=== PATIENT | male | born 1935 | race Caucasian/White ===

== ENCOUNTER → 2019-04-10 11:32 | Outpatient (CLI) | payer MEDICARE, SELFPAY ==
--- NOTE | 2019-04-10 12:06 | XR_ITS ---
PROCEDURE: XR KNEE RT 3V CLINICAL INDICATION: RT KNEE PAIN COMPARISON: No exams were available for comparison FINDINGS: Prior total knee replacement. There are no previous exams available for comparison.. There is some cortical regularity involving the proximal tibia medially just distal to the distal aspect of the stem of the tibial prosthesis. While this could be a postsurgical finding, 1 cannot exclude the possibility of a fracture. Please correlate as the patient's area of pain and tenderness. Correlation with old studies would be helpful if they are available. There are none made available at this institution. IMPRESSION: Prior total knee replacement. Cortical regularity of the proximal tibia medially which could reflect postsurgical change or nondisplaced fracture. Dictated by: Dmitry Oliveira MD 04/10/2019 13:05 Electronically signed by Dmitry Oliveira MD in [facility] 04/10/2019 13:05
[2019-04-10 13:40] LABS: Prostate Specific Ag, Diagnost 0 ng/mL (0.0-4.0)
== END ==
PROVIDERS: Visit Provider Urology
DX: C61 Malignant neoplasm of prostate (principal); M25.561 Pain in right knee
CPT/HCPCS: 36415; 73562; 84153

== ENCOUNTER → 2019-07-08 15:06 | Outpatient (CLI) | payer MEDICARE, SELFPAY ==
--- NOTE | 2019-07-08 15:12 | CA_ITS ---
APPROVED REPORT Right Lower Extremity Venous Study for DVT. Epidemiology Intern: Maryanne De Santiago RVT Indications Lower Extremity Pain: Right Lower Extremity Edema: Right Risk Factors Cardiac Disease Vein Imaging CFV (R): compressive, spontaneous, phasic, augmentation FEM (R): compressive, spontaneous, phasic, augmentation POP (R): compressive, spontaneous, phasic, augmentation PTV (R): Compressible GSV (R): Compressible Peroneals (R):Compressible GAS (R): Compressible Findings Study suggests no evidence of DVT of the right lower extremity. Study suggests no evidence of SVT of the right lower extremity. Conclusion No evidence of DVT or superficial thrombophlebitis in the veins scanned of the right lower extremity. Critical Notification Physician Notified Date: 07/08/2019 Time: 15:45 Physician Name: Dewayne Mandujano Electronically signed by : Dmitry Oliveira MD 07/08/2019 18:22:27
== END ==
PROVIDERS: PCP Family Medicine; Visit Provider Nurse Practitioner
DX: M79.604 Pain in right leg (principal); R60.0 Localized edema
CPT/HCPCS: 93971

== ENCOUNTER → 2019-08-21 08:47 | Outpatient (CLI) | payer MEDICARE, SELFPAY ==
--- NOTE | 2019-08-21 08:54 | US_ITS ---
APPROVED REPORT Exam Type: Lower Extremity Segmental Pressures Pharmaceutical Scientist: Maryanne De Santiago RVT Indications Claudication: Bilaterally Rest Pain: Bilaterally Edema CAD Risk Factors Hypertension CAD Hyperlipidemia Cardiac Disease Diabetes Pressures/Indices Right Indices Left Indices Brachial 175.00 mmHg Brachial 185.00 mmHg Low Thigh 179.00 mmHg 0.97 Low Thigh 125.00 mmHg 0.68 Calf 122.00 mmHg 0.66 Calf 158.00 mmHg 0.85 Ankle(PT) 141.00 mmHg 0.76 Ankle(PT) 145.00 mmHg 0.78 Ankle(DP) 125.00 mmHg 0.68 Ankle(DP) 97.00 mmHg 0.52 Digit 73.00 mmHg 0.39 Digit 82.00 mmHg 0.44 Findings RT JOJO:0.76 LT JOJO:0.78 RT TBI:0.39 LT TBI:0.44 NORMAL PULSES BILATERAL DECREASED WAVEFORMS AT CALF AND ANKLE LEVELS BILATERAL Conclusion RT JOJO:0.76 LT JOJO:0.78 RT TBI:0.39 LT TBI:0.44 NORMAL PULSES BILATERAL DECREASED WAVEFORMS AT CALF AND ANKLE LEVELS BILATERAL Moderate arterial disease bilateral Electronically signed by : Dmitry Oliveira MD 08/21/2019 17:35:51
--- NOTE | 2019-08-21 09:30 | XR_ITS ---
PROCEDURE: XR LUMBAR SPINE MIN 4V CLINICAL INDICATION: LUMBAGO Low back pain COMPARISON: No exams were available for comparison FINDINGS: There is good alignment. There is multilevel degenerative disc disease T12-S1. Prominent bridging osteophytes are present from T12-S1 consistent with DISH. There is mild lumbar curvature convex right. No acute fracture or dislocation. No lytic changes. Facet arthritic changes are present at L4-L5 and S1. There is generalized vascular calcification and there are multiple surgical clips over the lower pelvic region. Degenerative changes are present in the left hip. IMPRESSION: Extensive lumbar spondylosis with multilevel degenerative disc disease and DISH along with facet arthritic changes Dictated by: Dmitry Oliveira MD 08/21/2019 13:36 Electronically signed by Dmitry Oliveira MD in [facility] 08/21/2019 13:36
== END ==
PROVIDERS: PCP Family Medicine; Visit Provider Family Medicine
DX: I70.213 Atherosclerosis of native arteries of extremities with intermittent claudication, bilateral legs (principal); M54.42 Lumbago with sciatica, left side; M54.41 Lumbago with sciatica, right side
CPT/HCPCS: 72110; 93923

== ENCOUNTER 2019-08-28 12:44 | Emergency (ER) | payer MEDICARE, SELFPAY ==
[2019-08-28 12:56] VITALS: BP 116/83; PULSE 88; RESP 18; TEMP 36.6; O2SAT 92; BMI 33.6
--- NOTE | 2019-08-28 13:01 | CT_ITS ---
PROCEDURE: CT HEAD/BRAIN WO CON CLINICAL INDICATION: fall Posttraumatic pain, fall with injury and pain, hematoma/contusion of the left periorbital region COMPARISON: No exams were available for comparison TECHNIQUE: Axial images obtained. All CT scans at the facility use one or more dose reduction, viz: automated exposure control, ma/kV adjustment per patient size (including targeted exams where dose is matched to indication, i.e. head), or iterative reconstruction technique. FINDINGS: No midline shift, mass effect, intracranial hemorrhage, hydrocephalus, or extra-axial fluid collection is evident. There is generalized atrophy with hypoattenuation of the periventricular white matter consistent with microangiopathic changes. The calvarium has an unremarkable appearance. No mastoid effusion. There is moderate soft tissue swelling in the left periorbital region consistent with hematoma. IMPRESSION: 1. No acute intracranial findings. 2. Left periorbital hematoma Dictated by: Dmitry Oliveira MD 08/28/2019 14:40 Electronically signed by Dmitry Oliveira MD in [facility] 08/28/2019 14:40
--- NOTE | 2019-08-28 13:01 | CT_ITS ---
PROCEDURE: CT CERVICAL SPINE WO CON CLINICAL INDICATION: fall Neck pain following injury, fall with injury and pain COMPARISON: No exams were available for comparison TECHNIQUE: Axial images obtained with sagittal and coronal reformats. All CT scans at the facility use one or more dose reduction, viz: automated exposure control, ma/kV adjustment per patient size (including targeted exams where dose is matched to indication, i.e. head), or iterative reconstruction technique. Axial spiral CT scanning performed of the cervical spine beginning at the base of the skull and continuing to the upper T-spine. 3-D multiplanar reconstruction with 3-D manipulation of volumetric data set in image rendering was completed by the radiologist and/or technologist with the supervision of the radiologist on independent workstation. FINDINGS: There is normal alignment. No acute fracture or dislocation is evident. There is multilevel cervical spondylosis with bulging degenerative disc disease with endplate, facet, and uncovertebral hypertrophy with bulging disc. This results in: Left foraminal narrowing at C2-C3 with degenerative disc disease, degenerative disc disease C3-C4 with small central disc osteophyte complex, degenerative disc disease C4-C5 with bilateral foraminal narrowing, degenerative disc disease C5-C6 with bilateral foraminal and lateral recess narrowing, degenerative disc disease C6-C7. The lung apices are clear. There has been a prior median sternotomy. IMPRESSION: 1. No acute fracture. 2. Multilevel cervical spondylosis Dictated by: Dmitry Oliveira MD 08/28/2019 14:43 Electronically signed by Dmitry Oliveira MD in [facility] 08/28/2019 14:43
--- NOTE | 2019-08-28 13:01 | CT_ITS ---
PROCEDURE: CT FACIAL BONES WO CON CLINICAL HISTORY: fall Fall with injury and pain, posttraumatic pain with left periorbital contusion/hematoma COMPARISON: No exams were available for comparison TECHNIQUE: Axial images obtained with sagittal and coronal reformats. All CT scans at the facility use one or more dose reduction, viz: automated exposure control, ma/kV adjustment per patient size (including targeted exams where dose is matched to indication, i.e. head), or iterative reconstruction technique. FINDINGS: No obvious fracture or dislocation. There is prominent periorbital soft tissue swelling on the left. No postseptal edema. The globe itself appears unremarkable. Along the anterior aspect of maxillary region within the subcutaneous soft tissues there is a rounded 1.7 cm area of increased density consistent with a hematoma. No sinus air-fluid level. IMPRESSION: Left periorbital and maxillary hematomas. No acute fracture Dictated by: Dmitry Oliveira MD 08/28/2019 14:54 Electronically signed by Dmitry Oliveira MD in [facility] 08/28/2019 14:54
--- NOTE | 2019-08-28 13:03 | PC.NURSE ---
caregiver at bedside
[2019-08-28 13:36] VITALS: BP 136/59; PULSE 81; O2SAT 92
[2019-08-28 14:30] VITALS: BP 124/60; PULSE 67; RESP 20; O2SAT 98
--- NOTE | 2019-08-28 15:17 | HMH.EDFALL ---
ED Disposition Clinical Impression: Superficial contusion of neck Disposition: Home, Self-Care Condition on Discharge: Good Instructions: How to Prevent Falls Referrals: Vern Lloyd MD [Primary Care Provider] - - Critical Care Critical Care Time: No Attestation: On 08/28/19, the high probability of a clinically significant, sudden or life threatening deterioration of the following system(s) required my full and direct attention, intervention and personal management. The time I documented below is in addition to time spent performing reported procedures but includes the following listed in this critical care notation. Medical Decision Making - Medical Records Medical records reviewed: Yes: I reviewed the patient's medical records. - Nathaniel Inquiry Pt receiving controlled substance: No Vital Signs: 08/28/19 12:56 08/28/19 13:36 08/28/19 14:30 Temperature 98 F Temperature Source Oral Pulse Rate [Left Radial] 88 81 67 Respiratory Rate 18 20 Blood Pressure [Right Arm] 116/83 136/59 L 124/60 Blood Pressure Mean [Right Arm] 94 84 81 Blood Pressure Source [Right Arm] Automatic Cuff Automatic Cuff Blood Pressure Position [Right Arm] Sitting Sitting Sitting 02 Sat by Pulse Oximetry 92 L 92 L 98 Oxygen Delivery Method Room Air Room Air Room Air - Lab Data Lab results reviewed: Yes: I reviewed the patient's lab results. - CT Data CT Scan: Head, C-Spine, Other (Facial bones) Time Received: 15:20 Preliminary Findings: Normal/NAD Fall HPI - General Chief Complaint: Fall Stated Complaint: AO [id number] Fell on face Time Seen by Provider: 08/28/19 14:30 Mode of Arrival: Ambulatory Source of Information: Patient Limitations: No Limitations Description of Symptoms (Recalled from ER Triage Doc. by RN): to ed per pvt car pt states fell out of bed lastnight hitting lt side of face. laceration, bruising, swelling noted to lt of face. denies any loc. pt denies any other c/o at present - History of Present Illness HPI Narrative: 84-year-old male presents to the ED after a fall. Apparently patient was lying in bed and threw one leg over the side of the bed because he was hot and when he did that he ended up rolling off the bed and hit his head on the floor. Patient does have a hematoma over the left eye and a small abrasion over the left cheek. Patient denies any loss of consciousness patient denies any headache patient denies any loss of balance. Patient also denies any recent fever shakes or chills patient also denies any sore throat or headache patient also denies any fatigue or malaise. - Related Data Home Medications Medication Instructions Recorded Confirmed allopurinol 100 mg tablet 100 mg PO DAILY tab 04/10/19 06/11/19 atorvastatin 20 mg tablet 20 mg PO DAILY tab 04/10/19 06/11/19 celecoxib 200 mg capsule 200 mg PO DAILY cap 04/10/19 06/11/19 duloxetine 60 mg capsule,delayed 60 mg PO DAILY cap 04/10/19 06/11/19 release furosemide 40 mg tablet 40 mg PO DAILY tab 04/10/19 06/11/19 insulin glargine 100 unit/mL (3 1 unit SQ DAILY 04/10/19 06/11/19 mL) subcutaneous pen liraglutide 0.6 mg/0.1 mL (18 mg/3 1 unit SQ DAILY 04/10/19 06/11/19 mL) subcutaneous pen injector lisinopril 20 mg tablet 20 mg PO DAILY tab 04/10/19 06/11/19 meloxicam 15 mg tablet 15 mg PO DAILY 04/10/19 06/11/19 metoprolol tartrate 25 mg tablet 25 mg PO DAILY tab 04/10/19 06/11/19 prednisolone acetate 1 % eye 1 unit OPHTHALMIC DAILY 04/10/19 06/11/19 drops,suspension Allergies Allergy/AdvReac Type Severity Reaction Status Date / Time No Known Allergies Allergy Verified 06/11/19 09:55 [facility] History - Hepatitis A Screen Drug use history?: No High risk sexual behaviors?: No History of sexually transmitted infection?: No Currently employed?: No Childcare worker?: No Do you have indoor plumbing?: Yes Do you have electricity?: Yes Attestation statement:: This patient has been screened for Hepa
[2019-08-28 15:43] VITALS: BP 123/85; PULSE 85; RESP 20; TEMP 36.8; O2SAT 98
== END 2019-08-28 15:47 | disposition home or self-care (01) ==
PROVIDERS: Emergency Provider Family Medicine; PCP Family Medicine
DX: S10.93XA Contusion of unspecified part of neck, initial encounter (principal); W06.XXXA Fall from bed, initial encounter; Y92.013 Bedroom of single-family (private) house as the place of occurrence of the external cause; I10 Essential (primary) hypertension; E10.9 Type 1 diabetes mellitus without complications; Z79.899 Other long term (current) drug therapy
CPT/HCPCS: 70450; 70486; 72125; 99282

== ENCOUNTER → 2019-09-03 09:19 | Outpatient (CLI) | payer MEDICARE, SELFPAY ==
[2019-09-03 09:53] LABS: Blood Urea Nitrogen 60 mg/dl (9-20); Estimated Glomerular Filt Rate 41 ml/min (>60); GFR (African American) 50 ML/MIN (>60)
--- NOTE | 2019-09-03 11:27 | CT_ITS ---
Procedure: CT ANGIO ABDOMEN/FEMORAL CLINICAL HISTORY: CLAUDICATION Bilateral leg pain right greater than left, bilateral claudication COMPARISON: US ARTERIAL LOWER EXT REST from 08/21/2019 TECHNIQUE: IV Contrast: 100ml Optiray 350 Axial images obtained with sagittal and coronal reformats. All CT scans at the facility use one or more dose reduction, viz: automated exposure control, ma/kV adjustment per patient size (including targeted exams where dose is matched to indication, i.e. head), or iterative reconstruction technique. FINDINGS: Atheromatous changes involve the abdominal aorta with tortuosity in no evidence of aneurysm. There are 2 small right renal arteries each showing a moderate to high-grade stenosis at its ostium of suspected greater than 50 percent. There is a single left renal artery with high-grade stenosis proximally of greater than 50 percent with fibrocalcific plaque. No significant stenosis of the celiac or superior mesenteric artery. The inferior mesenteric artery is patent with high-grade stenosis at its ostium of greater than 50 percent. There is stenosis at the ostium of the right common iliac artery of approximately 50 percent with tortuosity of the iliac vessels. The external iliacs have an unremarkable appearance. Right lower extremity runoff: Scattered atheromatous plaque. There is severe stenosis of the mid to distal right SFA of 75 percent short-segment. This is 10 cm above the knee. Atheromatous plaque is present distal to this region. Artifact is present from bilateral knee replacement obscuring vessels at the popliteal region. Scattered atheromatous plaque with narrowing of approximately 40 is present at the distal popliteal on the right. Plaque is present at the tibial peroneal trunk. There is occlusion of the right tibial peroneal trunk and of the posterior tibial artery with only minimal reconstitution of the distal posterior tib. Delayed images were obtained showing reconstitution of the posterior tib, anterior tib and peroneal artery Left lower extremity runoff: 40 percent stenosis noted of the mid left SFA. There is occlusion of the distal 1/3 left SFA with faint reconstitution of the popliteal artery. The peroneal artery is patent below the knee. There is occlusion of the proximal posterior tibial and anterior tibial artery. Delayed images show reconstitution the anterior tib, posterior tip, and peroneal arteries at the ankle. Non angiographic: The cholelithiasis. Bilateral total knee replacement. Degenerative changes of the hips and spine. IMPRESSION: 1. Severe stenosis of the mid to distal right SFA of 75 percent. 2. Occlusion of the right tibial peroneal trunk and the posterior tibial artery proximally with reconstitution distally on the delayed images. 3. Occlusion of the distal 1/3 of the left SFA with faint reconstitution of the popliteal artery 4. Occluded left anterior tibial and posterior tibial arteries proximally with patent peroneal artery below the knee. There is reconstitution of the anterior tib and posterior tib distally on the delayed images. 5. Cholelithiasis Dictated by: Dmitry Oliveira MD 09/04/2019 13:32 Electronically signed by Dmitry Oliveira MD in [facility] 09/04/2019 13:32
== END ==
PROVIDERS: PCP Family Medicine; Visit Provider Family Medicine
DX: I70.213 Atherosclerosis of native arteries of extremities with intermittent claudication, bilateral legs (principal)
CPT/HCPCS: 36415; 75635; 82565; 84520; Q9967

== ENCOUNTER 2019-09-25 07:44 | Day surgery (SDC) | payer MEDICARE, SELFPAY ==
[2019-09-25] VITALS (12 sets, daily range): BP systolic 112–163; BP diastolic 59–92; PULSE 70–104; RESP 15–20; TEMP 36.8; O2SAT 94–99; BMI 33.6
--- NOTE | 2019-09-25 07:52 | CA_ITS ---
APPROVED REPORT Surgical Instrument Maker: DIEGO Laterality: Bilateral Study Quality: Technically Limited, Due to uncooperative patient. Indications: carotid bruits Risk Factors PAD Doppler Spectral Velocity Analysis ECA (R) 132.00/19.20 cm/s ECA (L) 186.60/13.90 cm/s Nereida (R) 133.20/35.90 cm/s Nereida (L) 269.00/61.50 cm/s pICA (R) 143.50/32.00 cm/s pICA (L) 284.40/74.30 cm/s dCCA (R) 91.70/18.00 cm/s dCCA (L) 64.30/18.00 cm/s pCCA (R) 75.90/14.40 cm/s pCCA (L) 77.80/12.70 cm/s Vert (R) 83.30/23.10 cm/s Vert (L) 75.20/20.10 cm/s ICA/CCA 1.57 ICA/CCA 4.40 Findings Duplex evaluation demonstrates stenosis of the right proximal internal carotid artery in the range of 50-69% more toward lower end with PSV =140 cm/sec, EDV <100 cm/sec, and IC/CC Ratio <4.0. Duplex evaluation demonstrates stenosis of the leftproximal internal carotid artery in the range of 70-99% with PSV =140 cm/sec, EDV =100 cm/sec, or IC/CC Ratio =4.0. Conclusion Duplex evaluation demonstrates stenosis of the right proximal internal carotid artery in the range of 50-69% more toward lower end with PSV =140 cm/sec, EDV <100 cm/sec, and IC/CC Ratio <4.0. Duplex evaluation demonstrates stenosis of the leftproximal internal carotid artery in the range of 70-99% with PSV =140 cm/sec, EDV =100 cm/sec, or IC/CC Ratio =4.0. Electronically signed by : Dmitry Oliveira MD 09/25/2019 16:25:57
--- NOTE | 2019-09-25 07:52 | CA_ITS ---
APPROVED REPORT EXAM: Comprehensive 2D, Doppler, and color-flow Echocardiogram Sweep Molder: Marta Fulton RT(R) Ht: 5 ft 3 in Wt: 190lbs BSA: 1.89 BP: 133/98 mmHg Indications: SOB, DOTY, Hx of CABG, AF, CAD 2D Dimensions LVOT 1.91 cm (M/F) 1.5-2.5 M-Mode Dimensions RVDd 3.07 cm (0.9-2.6) LVDd 4.06 cm (3.5-5.7) LVDs 3.79 cm (3.5-5.7) IVSd 1.25 cm (0.6-1.1) PWd 0.53 cm (0.6-1.1) EF (Teich) 15.00% FS 6.70% EDV (Teich) 72.50 mL ESV (Teich) 61.60 mL LV Diastology E/A Ratio 12.59 Mitral Valve MV A Velocity 29.00 (40-130 cm/s) Left Ventricle 1. Left atrium is moderately enlarged, left ventricle is normal size, mild concentric left ventricular hypertrophy, visually estimated ejection fraction 45%, there is marked hypokinesis involving the inferior basal and posterolateral wall. Endocardial surfaces are poorly visualized. Diastolic parameters are inconclusive. Right Ventricle Right atrium and right ventricle are mildly enlarged with normal contractility. Aortic Valve Aortic valve is thickened and calcified leaflet continue to display mobility. There is no aortic stenosis, there is mild aortic insufficiency. Mitral Valve Mitral valve leaflets are minimally thickened, there is no mitral stenosis, there is moderate mitral regurgitation. Tricuspid Valve Tricuspid valve is grossly normal, there is mild tricuspid regurgitation, tricuspid regurgitation jet velocity is inadequate for calculation of the right ventricular systolic pressure. Pulmonic Valve Pulmonic valve is poorly visualized. Great Vessels Aortic root is normal size. Pericardium No significant pericardial effusion noted. Conclusion 1. Biatrial enlargement, normal left ventricular size, mild concentric left ventricular hypertrophy, visually estimated ejection fraction approximately 45% with segmental wall motion abnormality described above, diastolic parameters are inconclusive. 2. Mildly enlarged right ventricle with normal contractility. 3. Thickened and calcified aortic valve without Doppler evidence of aortic stenosis, there is mild aortic insufficiency. 4. Mild mitral and tricuspid regurgitation. 5. No significant pericardial effusion noted. Electronically signed by : Jim Jaquez, 09/26/2019 11:37:45
[2019-09-25 09:24] LABS: Basophils # 0.2 K/mm3 (0-0.2); Eosinophils # 0.5 K/mm3 (0.0-0.4); Eosinophils % 4.9 % (0.1-12.0); Hematocrit 36.5 % (42.0-52.0); Hemoglobin 11.9 g/dL (14.1-18.0); Lymphocytes # 2.2 K/mm3 (0.7-4.5); Lymphocytes % 21.7 % (10-50); Mean Corpuscular HGB Conc 32.5 g/dL (31.8-35.4); Mean Corpuscular Hemoglobin 30.2 pg (27.0-31.2); Mean Corpuscular Volume 93.1 fl (80-94); Mean Platelet Volume 9.2 fl (7.4-10.4); Monocytes # 0.7 K/mm3 (0.1-1.0); Neutrophils # 6.4 K/mm3 (1.8-7.8); Neutrophils % 64.4 % (37.0-80.0); Platelet Count 178 K/mm3 (142-424); Red Blood Count 3.92 M/mm3 (4.60-6.20); Red Cell Distribution Width 15.8 % (11.5-17.5)
[2019-09-25 10:07] LABS: Anion Gap 12.7 mEq/L (5-15); Blood Urea Nitrogen 72 mg/dl (9-20); Calcium 9.2 mg/dl (8.4-10.2); Carbon Dioxide 28 mmol/L (22.0-30.0); Chloride 103 mmol/L (98-107); Creatinine Clearance Estimated 30 mL/min (50-200); Estimated Glomerular Filt Rate 30 ml/min (>60); GFR (African American) 37 ML/MIN (>60); Glucose 205 mg/dl (74-100); Potassium 5.7 mmoL/L (3.5-5.1); Sodium 138 mmol/L (136-145)
--- NOTE | 2019-09-25 11:15 | IR_ITS ---
APPROVED REPORT Patient Location: Outpatient PROCEDURES Left femoral arterial access Catheter placement in the right common femoral artery Right common femoral artery angiogram Right superficial femoral artery angiogram Right profunda femoris artery angiogram Right popliteal artery angiogram Stent deployment in the right popliteal artery INDICATION [place] class III claudication, Peripheral artery disease, Atherosclerosis involving the right popliteal artery Informed consent was obtained prior to the procedure. COMPLICATIONS NONE Estimated Blood Loss: LESS THAN 10 ML TECHNIQUE 1% lidocaine used to anesthetize the left femoral groin. The left femoral artery was accessed via the Seldinger technique. Using fluoroscopic guidance the JR4 catheter was advanced from the aorta into the right common iliac artery and then advanced into the right common femoral artery. Angiography was performed. Because of patient's renal failure a stepwise manual injection was made down to the popliteal level. Following this therapeutic heparin was administered and a 5 Kittitian sheath was exchanged for a 7 Kitt[place] sheath. An advantage wire was placed distally and an 8 mm x 20 mm self-expanding EV 3 stent was deployed in the popliteal artery. A 7 mm x 20 mm balloon was then deployed at 8 [place] to post dilate. Excellent angiographic results were obtained. At the end of the procedure the apparatus was removed the groin was reprepped gloves were changed sheath was removed good hemostasis was achieved using Perclose device patient was transferred to the postop holding her stable condition ANGIOGRAPHIC RESULTS The right common iliac artery has a proximal 40 to 50% stenosis. The right internal and external iliac arteries are basically normal The right common femoral artery is normal as is the right profunda femoris artery The right superficial femoral artery has mild 10% plaque in its proximal segment however the right at Buddy's canal at the junction between the SFA and popliteal artery there is a mostly eccentric 80% stenosis. The vessel was not identified distal to the suprapatellar region IMPRESSION Focal severe stenosis in the right popliteal artery Successful stenting of the right popliteal artery severe disease reduced to 0% with one bare-metal self-expanding stent PLAN 1. Continue Xarelto for atrial fibrillation and combined with aspirin 81 mg daily 2. Reevaluate patient in 2 weeks to determine if the right leg claudication is improved. If patient has experienced significant benefit in the right leg I would then consider performing selective angiography of the left leg. Because of patient's severe renal failure it was not clinically appropriate to proceed with multiple angiograms today. 3. Risk factor modification 4. LDL less than 55 Electronically signed by : Benjamin De La Vega, 09/25/2019 14:10:32
--- NOTE | 2019-09-25 13:52 | SUR.PHASEII ---
NO ANTIPLATLET AT THIS TIME PER MD
[2019-09-25 15:09] LABS: CATHL Activated Clotting Time 234 SEC (74-125)
[2019-09-25 15:13] LABS: POC Glucose,Bedside 208 (70-110)
--- NOTE | 2019-11-29 08:55 | HMH.PHACLD ---
Jon Castrejon has received discharge medication counseling on the following medications: NEW MEDICATION: ASPIRIN CONTINUE MEDICATION: LIPITOR PATIENT RECEIVED A PERIPHERAL STENT, BETA-EMELYN AND JESSICA/ARB NOT INDICATED. DR. KOHLI DOES NOT WANT TO INITIATE AN ANTI-PLATELET AT THIS TIME. DOCUMENTED TO CONTINUE XARELTO AND AND ASPIRIN.
== END 2019-09-25 15:29 | disposition home or self-care (01) ==
PROVIDERS: PCP Family Medicine; Visit Provider Internal Medicine
DX: I70.223 Atherosclerosis of native arteries of extremities with rest pain, bilateral legs (principal); E11.51 Type 2 diabetes mellitus with diabetic peripheral angiopathy without gangrene; E78.5 Hyperlipidemia, unspecified; I10 Essential (primary) hypertension; I25.10 Atherosclerotic heart disease of native coronary artery without angina pectoris; I48.91 Unspecified atrial fibrillation; I70.1 Atherosclerosis of renal artery; M10.9 Gout, unspecified; R94.31 Abnormal electrocardiogram [ECG] [EKG]; Z79.4 Long term (current) use of insulin; Z85.46 Personal history of malignant neoplasm of prostate; Z95.1 Presence of aortocoronary bypass graft; Z95.5 Presence of coronary angioplasty implant and graft; R09.89 Other specified symptoms and signs involving the circulatory and respiratory systems
CPT/HCPCS: 37226; 80048; 82962; 85025; 85347; 93306; 93880; 99152; 99153; C1725; C1760; C1769; C1876; C1894; J1644; Q9966

== ENCOUNTER 2019-10-17 09:16 | Day surgery (SDC) | payer MEDICARE, SELFPAY ==
[2019-10-17] VITALS (18 sets, daily range): BP systolic 111–159; BP diastolic 48–89; PULSE 65–94; RESP 15–20; TEMP 36.4; O2SAT 72–100; BMI 34.2
--- NOTE | 2019-10-17 09:00 | IR_ITS ---
APPROVED REPORT Patient Location: Outpatient Lurer: ANNELIESE Klein RT (R) PROCEDURES 1. Catheter placement in the right vertebral artery 2. Right vertebral artery angiogram 3. Catheter placement in the right common carotid artery 4. Right internal carotid artery angiogram 5. Right internal carotid artery intracerebral angiogram 6. Catheter placement in the left common carotid artery 7. Left internal carotid artery angiogram 8. Left internal carotid artery intracerebral angiogram 9. Catheter placement in left subclavian artery 10. Left vertebral artery angiogram INDICATION Preoperative evaluation for carotid endarterectomy, Carotid artery stenosis Informed consent was obtained prior to the procedure. COMPLICATIONS None Estimated Blood Loss: less than 10 ml TECHNIQUE One percent lidocaine was used to anesthetize the right groin. The right femoral artery was accessed via the Seldinger technique. A 4-Luxembourger sheath was placed in the right femoral artery. The JR-4 catheter was used to cannulate the above arteries and perform selective and indirect angiography. Due to iliofemoral tortuosity the 4 Luxembourger sheath was exchanged for a 45 cm 5 Luxembourger sheath and a 5 Luxembourger JR4 was used to cannulate the left subclavian artery and specifically the left vertebral artery as well as the left carotid artery. At the end of the procedure the apparatus was removed the patient was transferred to the postop holding in stable addition for sheath removal ANGIOGRAPHIC RESULTS The right common carotid artery is widely patent and gives rise to the right internal carotid artery which has minimal less than 50% proximal stenosis. 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 It is reasonable for patient to be evaluated for surgical revascularization and carotid endarterectomy. Whether to proceed with carotid endarterectomy will be decided by the patient and the performing/consulting surgeon 2. Referred to Dr. Cortés at [facility] 3. Continue with aspirin 81 mg daily combined with Xarelto 2.5 p.o. twice daily 4. LDL less than 55 Electronically signed by : Benjamin De La Vega, 10/17/2019 11:37:00
[2019-10-17 10:18] LABS: Basophils # 0.1 K/mm3 (0-0.2); Basophils % 0.6 % (0.1-2.0); Eosinophils # 0.9 K/mm3 (0.0-0.4); Eosinophils % 7.9 % (0.1-12.0); Hematocrit 37.2 % (42.0-52.0); Hemoglobin 11.7 g/dL (14.1-18.0); Lymphocytes # 2.2 K/mm3 (0.7-4.5); Lymphocytes % 19.8 % (10-50); Mean Corpuscular HGB Conc 31.4 g/dL (31.8-35.4); Mean Corpuscular Hemoglobin 30.5 pg (27.0-31.2); Mean Corpuscular Volume 97.2 fl (80-94); Mean Platelet Volume 8.9 fl (7.4-10.4); Monocytes # 0.7 K/mm3 (0.1-1.0); Monocytes % 6.3 % (1.7-9.3); Neutrophils # 7.1 K/mm3 (1.8-7.8); Neutrophils % 65.3 % (37.0-80.0); Platelet Count 186 K/mm3 (142-424); Red Blood Count 3.82 M/mm3 (4.60-6.20); Red Cell Distribution Width 17.4 % (11.5-17.5); White Blood Count 10.9 K/mm3 (4.8-10.8)
[2019-10-17 10:28] LABS: Chloride 104 mmol/L (98-107); Potassium 4.7 mmoL/L (3.5-5.1); Sodium 142 mmol/L (136-145)
[2019-10-17 10:31] LABS: Anion Gap 11.7 mEq/L (5-15); Blood Urea Nitrogen 73 mg/dl (9-20); Calcium 9.1 mg/dl (8.4-10.2); Carbon Dioxide 31 mmol/L (22.0-30.0); Creatinine Clearance Estimated 32 mL/min (50-200); Estimated Glomerular Filt Rate 30 ml/min (>60); GFR (African American) 37 ML/MIN (>60); Glucose 138 mg/dl (74-100)
== END 2019-10-17 15:13 | disposition home or self-care (01) ==
LOC: CATHLAB 09:18
PROVIDERS: PCP Family Medicine; Visit Provider Internal Medicine
DX: E11.69 Type 2 diabetes mellitus with other specified complication (principal); E78.5 Hyperlipidemia, unspecified; I25.10 Atherosclerotic heart disease of native coronary artery without angina pectoris; I42.9 Cardiomyopathy, unspecified; I48.91 Unspecified atrial fibrillation; I65.23 Occlusion and stenosis of bilateral carotid arteries; I70.1 Atherosclerosis of renal artery; M10.9 Gout, unspecified; N18.3 Chronic kidney disease, stage 3 (moderate); I70.223 Atherosclerosis of native arteries of extremities with rest pain, bilateral legs; E11.22 Type 2 diabetes mellitus with diabetic chronic kidney disease; I12.9 Hypertensive chronic kidney disease with stage 1 through stage 4 chronic kidney disease, or unspecified chronic kidney disease; Z79.4 Long term (current) use of insulin; R94.31 Abnormal electrocardiogram [ECG] [EKG]; Z95.1 Presence of aortocoronary bypass graft; Z95.5 Presence of coronary angioplasty implant and graft
CPT/HCPCS: 36224; 36228; 80048; 85025; 99152; 99153; C1725; C1769; J1644; Q9967

== ENCOUNTER 2019-12-21 14:47 | Emergency (ER) | payer MEDICARE, SELFPAY ==
[2019-12-21 15:03] VITALS: BP 129/77; PULSE 73; RESP 20; TEMP 36.5; O2SAT 97; BMI 30.1
--- NOTE | 2019-12-21 16:05 | HMH.EDUTC ---
[facility] [place] Disposition Clinical Impression: Chronic renal failure, stage 3 (moderate) UTI (urinary tract infection) Qualifiers: Urinary tract infection type: site unspecified Hematuria presence: without hematuria Qualified Code(s): N39.0 - Urinary tract infection, site not specified Disposition: Home, Self-Care Condition on Discharge: Good Instructions: Urinary Tract Infection Additional Instructions: Follow up with your primary care doctor very closely (preferably on this coming Monday). Take the medication as directed. I adjusted the dose for your history of the stage 3 renal failure. Drink plenty of fluids. GO TOT ER FOR ANY WORSENING SIGNS OR SYMPTOMS, ESPECIALLY ANY CHILLING, FEVER, OR WORSENING URINARY SYMPTOMS Prescriptions: Ciprofloxacin HCl [Cipro 250mg Tab] 250 mg PO BID 10 Days #20 tab Transmission Status: Received by [email or web address] #[id number] Referrals: Vern Lloyd MD [Primary Care Provider] - Time of Disposition: 16:23 Medical Decision Making - Medical Records Medical records reviewed: No: I reviewed the patient's medical records. - Nathaniel Inquiry Pt receiving controlled substance: No Vital Signs: 12/21/19 15:03 12/21/19 16:07 Temperature 97.7 F 97.7 F Temperature Source Oral Pulse Rate 73 Pulse Rate [Right Brachial] 73 Respiratory Rate 20 20 Blood Pressure 129/77 Blood Pressure [Right Arm] 129/77 Blood Pressure Mean [Right Arm] 94 Blood Pressure Source [Right Arm] Automatic Cuff Blood Pressure Position [Right Arm] Sitting 02 Sat by Pulse Oximetry 97 Oxygen Delivery Method Room Air - Lab Data Lab results reviewed: Yes: I reviewed the patient's lab results. Orders (Tests/Meds): ED MEDICATIONS Discontinued Medications Generic Name Dose Route Start Last Admin Trade Name Freq PRN Reason Stop Dose Admin Ceftriaxone Sodium 1 gm 12/21/19 15:42 12/21/19 15:55 Rocephin 1gm Vial IM 12/21/19 15:43 1 gm ONCE ONE Administration Protocol Lidocaine HCl 0 ml 12/21/19 15:42 12/21/19 15:55 Lidocaine 1% 10ml Mdv IM 12/21/19 15:43 2.1 ml ONCE ONE Administration Medical Decision Narrative: He could not give us a urine specimen due to him being incontinent. I did not feel comfortable catherizing him due to his history of prostate issues and prostate removal. So, I elected to start him on antibiotics to treat the possible uti and the have him follow up closely with his pcp. [facility] [place] HPI - General Stated complaint: Hurts to urinate Time Seen by Provider: 12/21/19 15:10 Mode of Arrival: Ambulatory Source of Information: Patient Limitations: No Limitations Description of Symptoms (Recalled from Triage Doc. by RN): PATIENT C/O BURNING WITH URINATION. DENIES ANY OTHER SYMPTOMS HEENT Symptoms (Recalled from RN notes): No Resp Symptoms (Recalled from RN notes): No Skin Symptoms (Recalled from RN notes): No MS Symptoms (Recalled from RN notes): No Functional Status (Recalled from RN notes): WNL - History of Present Illness Provider Complaint: He states that over the past 3 days, he has began to burn when he urinates and have some mild low back pain. He is incontinent of urine due to a history of prostate cancer and prostate removal in the past. He wears adult diapers. - Related Data Home Medications Medication Instructions Recorded Confirmed allopurinol 100 mg tablet 100 mg PO DAILY tab 04/10/19 10/21/19 atorvastatin 20 mg tablet 20 mg PO DAILY tab 04/10/19 10/21/19 celecoxib 200 mg capsule 200 mg PO DAILY cap 04/10/19 10/21/19 duloxetine 60 mg capsule,delayed 60 mg PO DAILY cap 04/10/19 10/21/19 release furosemide 40 mg tablet 40 mg PO DAILY tab 04/10/19 10/21/19 insulin glargine 100 unit/mL (3 1 unit SQ DAILY 04/10/19 10/21/19 mL) subcutaneous pen liraglutide 0.6 mg/0.1 mL (18 mg/3 1 unit SQ DAILY 04/10/19 10/21/19 mL) subcutaneous pen injector lisinopril 20 mg tablet 40 mg PO DAILY tab 09/19/19 10/21/19 Apixaban [Eliqu
[2019-12-21 16:07] VITALS: BP 129/77; PULSE 73; RESP 20; TEMP 36.5; O2SAT 97
== END 2019-12-21 16:29 | disposition home or self-care (01) ==
PROVIDERS: Emergency Provider Nurse Practitioner Family; PCP Family Medicine
DX: N30.01 Acute cystitis with hematuria (principal); N18.3 Chronic kidney disease, stage 3 (moderate); Z85.46 Personal history of malignant neoplasm of prostate; I10 Essential (primary) hypertension; I65.23 Occlusion and stenosis of bilateral carotid arteries; I25.10 Atherosclerotic heart disease of native coronary artery without angina pectoris; E11.9 Type 2 diabetes mellitus without complications; Z79.899 Other long term (current) drug therapy
CPT/HCPCS: G0463; 96372; 99201

== ENCOUNTER 2020-02-22 11:55 | Emergency (ER) | payer MEDICARE, SELFPAY ==
[2020-02-22 12:02] VITALS: BP 109/62; PULSE 80; RESP 19; TEMP 36.6; O2SAT 100; BMI 32.2
--- NOTE | 2020-02-22 12:29 | HMH.EDUTC ---
[facility] [place] Clinical Impression: Laceration of head Qualifiers: Encounter type: initial encounter Location of open wound of head: scalp Foreign body presence: without foreign body Qualified Code(s): S01.01XA - Laceration without foreign body of scalp, initial encounter Disposition: Home, Self-Care Condition on Discharge: Good Instructions: How to Care for a Laceration After Repair, DI for Laceration Repair -- Simple, DI for Closed Head Injury, Closed Head Injury Additional Instructions: Suture instructions: You have required stitches today. Please read the following instructions so you know how to care for them: 1. Keep wound area dry for the first 24 hours. 2 May clean gently with mild soap and water, after 48 hours to prevent crusting over suture knots. 3. You may shower if your provider gives permission but do not take a bath until the skin is healed.. 4. Never leave a wet dressing or Band-Aid on your stitches as this allows bacteria to reach the area and may cause infection. Band-aids can cause the wound to sweat and not recommended to wear for long periods of time Watch for signs of infection: Increasing redness, tenderness or warmth around the suture site Unusual swelling around the site Appearance of pus around each suture or any red streaks Fever If you develop any of the above signs or symptoms of infection, Follow up with Family Physician immediately 5. Suture removal in __7__days 6. Return to [facility] or follow up with family doctor for removal. This can be done by any medical provider during regular hours on Monday through Monday, by appointment. Monitor patient for changes in behavior, sleeping and hard to arouse, worse headache of life, vision problems, nausea and vomiting if any seen go straight to closest Emergency Room Referrals: Vern Lloyd MD [Primary Care Provider] - As needed Time of Disposition: 12:36 Medical Decision Making - Medical Records Medical records reviewed: Yes: I reviewed the patient's medical records. - Nathaniel Inquiry Pt receiving controlled substance: No Nathaniel was queried for this patient: No Vital Signs: 02/22/20 12:02 02/22/20 12:44 Temperature 97.8 F 97.8 F Temperature Source Oral Oral Pulse Rate 80 Pulse Rate [Radial] 80 Respiratory Rate 19 19 Blood Pressure 109/62 L Blood Pressure [Right Arm] 109/62 L Blood Pressure Mean [Right Arm] 77 Blood Pressure Source Automatic Cuff Blood Pressure Source [Right Arm] Automatic Cuff Blood Pressure Position Sitting Blood Pressure Position [Right Arm] Sitting 02 Sat by Pulse Oximetry 100 Oxygen Delivery Method Room Air Room Air Orders (Tests/Meds): ED MEDICATIONS Discontinued Medications Generic Name Dose Route Start Last Admin Trade Name Freq PRN Reason Stop Dose Admin Tetanus/Diphtheria Toxoids 0.5 ml 02/22/20 12:07 02/22/20 12:22 Tetanus-Diphth Toxoid, Adult 0.5ml Syr IM 02/22/20 12:08 0.5 ml .ONCE ONE Administration Medical Decision Narrative: Discussed with patient about transfer to the ED for head CT due to fall and patient declined at this time Denies LOC denies headache denies vision changes Patient and family educated on closed head injury and to monitor patient closely for changes in behavior and return immediately to ED if patient has any changes, N/V etc Patient denies any other injury [facility] [place] - General Stated complaint: AO 02/22/20 fall, head lac Time Seen by Provider: 02/22/20 12:29 Mode of Arrival: Ambulatory Source of Information: Patient Limitations: No Limitations Description of Symptoms (Recalled from Triage Doc. by RN): fell @ 1045 and hit head. States his back hurts. Lac to head. HEENT Symptoms (Recalled from RN notes): No Resp Symptoms (Recalled from RN notes): No Skin Symptoms (Recalled from RN notes): Yes MS Symptoms (Recalled from RN notes): No Functional Status (Recalled from RN notes): wnl - History of Present Illness Provider Complaint: Patient states lorie
[2020-02-22 12:44] VITALS: BP 109/62; PULSE 80; RESP 19; TEMP 36.6; O2SAT 100
== END 2020-02-22 12:45 | disposition home or self-care (01) ==
PROVIDERS: Emergency Provider Nurse Practitioner; PCP Family Medicine
DX: S01.01XA Laceration without foreign body of scalp, initial encounter (principal); Z23 Encounter for immunization; W01.0XXA Fall on same level from slipping, tripping and stumbling without subsequent striking against object, initial encounter; Y92.014 Private driveway to single-family (private) house as the place of occurrence of the external cause; I10 Essential (primary) hypertension; E11.9 Type 2 diabetes mellitus without complications; I25.10 Atherosclerotic heart disease of native coronary artery without angina pectoris; H65.23 Chronic serous otitis media, bilateral; Z79.899 Other long term (current) drug therapy
CPT/HCPCS: 12001; G0463; 90471; 90714; 99201

== ENCOUNTER 2020-05-02 18:37 | Inpatient (IN) | payer MEDICARE, SELFPAY ==
[2020-05-02] VITALS (11 sets, daily range): BP systolic 99–131; BP diastolic 48–62; PULSE 42–69; RESP 15–18; TEMP 31.9–33.2; O2SAT 88–99; BMI 28.3; BMI 32.1
--- NOTE | 2020-05-02 18:36 | XR_ITS ---
PROCEDURE: XR CHEST PORTABLE CLINICAL HISTORY: weak Posttraumatic pain COMPARISON: No exams were available for comparison FINDINGS: Hypoventilation. Prior CABG. Mild cardiomegaly. Increased markings are present in the right lower lobe and may be due to combination of low lung volumes at overlying soft tissue attenuation. Upright PA and chest may confirm. Cannot exclude underlying airspace disease in the right lower lobe. No acute bony abnormalities. IMPRESSION: As above, increased density right lower lobe which may be due to a combination of hypoventilation and soft tissue attenuation as opposed to underlying infiltrate Dictated by: Dmitry Oliveira MD 05/02/2020 19:39 Dmitry Oliveira MD in [place] 05/02/2020 19:39
--- NOTE | 2020-05-02 18:37 | CT_ITS ---
Procedure: CT ANGIO NECK CLINICAL HISTORY: neuro deficit Possible stroke, difficulty with speech COMPARISON: CT CT ANGIO HEAD from 05/02/2020 TECHNIQUE: IV Contrast: 100ml Isovue 370 Axial images obtained with sagittal and coronal reformats. All CT scans at the facility use one or more dose reduction, viz: automated exposure control, ma/kV adjustment per patient size (including targeted exams where dose is matched to indication, i.e. head), or iterative reconstruction technique. FINDINGS: Atherosclerotic changes are present involving the aortic arch. Atheromatous changes are present involving the brachiocephalic artery. Right carotid: Common carotid is unremarkable. There is atherosclerotic plaque at the ostium of the right ICA with less than 30 percent stenosis. There is tortuosity of the right ICA. Left carotid: Mild atheromatous changes of the common carotid.. Calcific plaque is present in the distal left common carotid extending into the bulb and proximal left ICA. Calcific plaque involves the proximal left ICA causing severe stenosis of approximately 80 percent. There is moderate tortuosity of the left ICA. Vertebrals have an unremarkable appearance. CTA head: Calcific plaque is present involving the cavernous portion and supra clinoid portion of both ICAs. No aneurysm, AVM, or major branch occlusion is evident. No evidence of dissection No enhancing lesions are evident. Incidental note is made of a large right-sided pleural effusion with compressive atelectatic changes. IMPRESSION: 1. High-grade stenosis of the proximal aspect of the left ICA of approximately 80 percent. 2. Negative CTA head 3. Large right pleural effusion Dictated by: Dmitry Oliveira MD 05/05/2020 17:25 Dmitry Oliveira MD in [place] 05/05/2020 17:25
--- NOTE | 2020-05-02 18:37 | CT_ITS ---
PROCEDURE: CT HEAD/BRAIN WO CON CLINICAL INDICATION: ams Altered mental status, altered level of consciousness, confusion, disorientation, neuro deficit, speech disturbance COMPARISON: 08/28/2019 TECHNIQUE: Axial images obtained. All CT scans at the facility use one or more dose reduction, viz: automated exposure control, ma/kV adjustment per patient size (including targeted exams where dose is matched to indication, i.e. head), or iterative reconstruction technique. FINDINGS: No midline shift, mass effect, intracranial hemorrhage, hydrocephalus, or extra-axial fluid collection is evident. There is generalized atrophy with hypoattenuation of the periventricular white matter consistent with microangiopathic changes. The calvarium has an unremarkable appearance. No mastoid effusion. No sinus air-fluid level. IMPRESSION: No acute intracranial finding Dictated by: Dmitry Oliveira MD 05/02/2020 23:49 Dmitry Oliveira MD in [place] 05/02/2020 23:49
--- NOTE | 2020-05-02 18:38 | ECG_ITS ---
APPROVED REPORT Exam: Resting ECG HR:54 bpm ECG Measurements Heart Rate 54 AXES QRSd 132 QRS -67 QT 564 T 102 QTc 534 Conclusion Atrial fibrillation with slow ventricular response Left axis deviation Nonspecific intraventricular block Nonspecific T wave abnormality Abnormal ECG Electronically signed by : Vern Aviles, 05/03/2020 13:14:57
--- NOTE | 2020-05-02 18:49 | HMH.EDGENADL ---
ED Disposition Clinical Impression: Altered mental status Qualifiers: Altered mental status type: disorientation Qualified Code(s): R41.0 - Disorientation, unspecified Speech abnormality Qualifiers: Speech disturbance type: other speech disturbance Qualified Code(s): R47.89 - Other speech disturbances Disposition: Still a Patient Condition on Discharge: Serious Referrals: Vern Lloyd MD [Primary Care Provider] - Time of Disposition: 19:42 - Critical Care Critical Care Time: No Attestation: On , the high probability of a clinically significant, sudden or life threatening deterioration of the following system(s) required my full and direct attention, intervention and personal management. The time I documented below is in addition to time spent performing reported procedures but includes the following listed in this critical care notation. Medical Decision Making - Medical Records Medical records reviewed: Yes: I reviewed the patient's medical records. - Nathaniel Inquiry Pt receiving controlled substance: No Vital Signs: 05/02/20 18:32 Temperature 89.4 F L Temperature Source Rectal Pulse Rate [Left Radial] 46 L Respiratory Rate 16 Blood Pressure [Right Arm] 128/57 L Blood Pressure Mean [Right Arm] 80 Blood Pressure Source [Right Arm] Automatic Cuff Blood Pressure Position [Right Arm] Sitting 02 Sat by Pulse Oximetry 96 Oxygen Delivery Method Room Air - Lab Data Lab Results 05/02/20 18:04: WBC 6.9, RBC 3.10 L, Hgb 9.7 L, Hct 32.1 L, MCV 103.5 H, MCH 31.4 H, MCHC 30.3 L, RDW 21.4 H, Plt Count 209, MPV 9.4, Neut % (Auto) 71.5, Lymph % (Auto) 19.0, [place] % (Auto) 5.5, Eos % (Auto) 3.7, Baso % (Auto) 0.4, Neut # (Auto) 5.0, Lymph # (Auto) 1.3, [place] # (Auto) 0.4, Eos # (Auto) 0.3, Baso # (Auto) 0.0 05/02/20 18:04: PT 12.5 H, INR 1.14 H, APTT 34.5 H 05/02/20 18:04: Sodium 142, Potassium 5.0, Chloride 107, Carbon Dioxide 24, Anion Gap 16.0 H, BUN 105 H*, Creatinine 1.40 H, Estimated Creat Clear 39, Estimated GFR 48 L, Est GFR ( Amer) 58 L, Glucose 65 L, Calcium 9.9, Total Bilirubin 1.4 H, AST 80 H, ALT 36, Alkaline Phosphatase 304 H, Troponin I 0.02, Total Protein 7.9, Albumin 4.2, Globulin 3.7 H, Albumin/Globulin Ratio 1.1, TSH 13.10 H 05/02/20 18:04: Free T4 1.10 05/02/20 19:05: Lactate 1.0 Result diagrams: 05/02/20 18:04 05/02/20 18:04 Orders (Tests/Meds): ED MEDICATIONS Generic Name Dose Route Start Last Admin Trade Name Freq PRN Reason Stop Dose Admin Sodium Chloride 1,000 mls @ 999 mls/hr 05/02/20 19:45 Sod Chlor 0.9% 1000ml Bag IV 05/02/20 20:45 .Q1H1M ZURI ORDERS Category Date Time Status CT angio head Stat Cat Scan 05/02/20 18:[address] angio neck Stat Cat Scan 05/02/20 18:[address] head/brain wo con Stat Cat Scan 05/02/20 18:37 Ordered Cortisol Stat Lab 05/02/20 19:05 Received Troponin I Q3H Lab 05/02/20 21:45 Ordered Troponin I Q3H Lab 05/03/20 00:45 Ordered Blood Culture Stat Micro 05/02/20 19:05 Received EKG Request [ECG Request by /Tiffany] Stat Y 05/02/20 18:38 Ordered - Radiology Data #1 Image(s): Chest Image Reviewed: Yes I reviewed the patient's radiology image Cardiomegaly. No focal infiltrate. Osseous structures unremarkable. Medical Decision Narrative: In summary this is an 85-year-old male presenting to the emergency department with speech difficulty. Patient is awake and alert on arrival. He is bradycardic in the 50s. Hypothermic with temperature of 89. Will panculture. Also concern for acute ischemic or hemorrhagic stroke. Will obtain CBC, CMP, chest x-ray, EKG, troponin profile, noncontrast head CT, CT angiography of the head and neck. Patient's daughter says that he was told he had a significant carotid occlusion, 95%. Was told there was no intervention. That is why he is on Eliquis. Will btain outside hospital records, from [facility]. EKG shows sinus bradycardia without evidence of cardiac ischemia. Initial l
--- NOTE | 2020-05-02 18:49 | PC.NURSE ---
Bear hugger, warm fluids and warm blankets placed on pt.
--- NOTE | 2020-05-02 18:53 | XR_ITS ---
PROCEDURE: XR PELVIS 1-2V CLINICAL INDICATION: fall Posttraumatic pain COMPARISON: CR [id number] HIP LT 2-3V W/PELVIS IF PERFOR from 06/25/2016 TECHNIQUE: XR Pelvis AP View FINDINGS: No fracture or dislocation. 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 Dictated by: Dmitry Oliveira MD 05/02/2020 19:37 Dmitry Oliveira MD in [place] 05/02/2020 19:37
[2020-05-02 18:56] LABS: Basophils % 0.4 % (0.1-2.0); Eosinophils # 0.3 K/mm3 (0.0-0.4); Eosinophils % 3.7 % (0.1-12.0); Hematocrit 32.1 % (42.0-52.0); Hemoglobin 9.7 g/dL (14.1-18.0); Lymphocytes # 1.3 K/mm3 (0.7-4.5); Mean Corpuscular HGB Conc 30.3 g/dL (31.8-35.4); Mean Corpuscular Hemoglobin 31.4 pg (27.0-31.2); Mean Corpuscular Volume 103.5 fl (80-94); Mean Platelet Volume 9.4 fl (7.4-10.4); Monocytes # 0.4 K/mm3 (0.1-1.0); Monocytes % 5.5 % (1.7-9.3); Neutrophils % 71.5 % (37.0-80.0); Platelet Count 209 K/mm3 (142-424); Red Cell Distribution Width 21.4 % (11.5-17.5); White Blood Count 6.9 K/mm3 (4.8-10.8)
[2020-05-02 19:03] LABS: Alanine Aminotransferase 36 U/L (12-78); Albumin Level 4.2 g/dl (3.5-5.0); Albumin/Globulin Ratio 1.1 (1.1-1.8); Alkaline Phosphatase 304 U/L (38-126); Aspartate Amino Transferase 80 U/L (17-59); Bilirubin,Total 1.4 mg/dl (0.2-1.3); Calcium 9.9 mg/dl (8.4-10.2); Carbon Dioxide 24 mmol/L (22.0-30.0); Chloride 107 mmol/L (98-107); Creatinine Clearance Estimated 39 mL/min (50-200); Estimated Glomerular Filt Rate 48 ml/min (>60); GFR (African American) 58 ML/MIN (>60); Globulin 3.7 g/dL (1.3-3.2); Glucose 65 mg/dl (74-100); Sodium 142 mmol/L (136-145); Total Protein,Serum 7.9 g/dl (6.3-8.2)
[2020-05-02 19:16] LABS: Troponin I 0.02 ng/ml (0.00-0.034)
[2020-05-02 19:23] LABS: Activated Partial Thrombo Time 34.5 seconds (23.6-34.0); INR 1.14 (0.9-1.1); Prothrombin Time 12.5 seconds (9.4-11.8)
[2020-05-02 19:24] LABS: Blood Urea Nitrogen 105 mg/dl (9-20)
--- NOTE | 2020-05-02 21:21 | PC.NURSE ---
pt's daughter @ bedside. Code status addressed and DNR signed
--- NOTE | 2020-05-02 21:22 | PC.NURSE ---
MD on phone with insurance application investigator pharmacy
--- NOTE | 2020-05-02 21:24 | PC.NURSE ---
paged dr montenegro @ this time
[2020-05-02 21:33] LABS: Coronavirus 19 IgG Antibody Negative (Negative); Coronavirus 19 IgM Antibody Negative (Negative)
--- NOTE | 2020-05-02 21:38 | PC.NURSE ---
on phone with Dr montenegro
--- NOTE | 2020-05-02 21:56 | HMH.EDGENADL ---
ED Disposition Clinical Impression: Myxedema, Acute anemia, Hypoglycemia Altered mental status Qualifiers: Altered mental status type: disorientation Qualified Code(s): R41.0 - Disorientation, unspecified Speech abnormality Qualifiers: Speech disturbance type: other speech disturbance Qualified Code(s): R47.89 - Other speech disturbances Hypothermia Qualifiers: Encounter type: initial encounter Qualified Code(s): T68.XXXA - Hypothermia, initial encounter Disposition: Still a Patient Condition on Discharge: Fair Referrals: Vern Lloyd MD [Primary Care Provider] - - Critical Care Critical Care Time: Yes Attestation: On 05/02/20, the high probability of a clinically significant, sudden or life threatening deterioration of the following system(s) required my full and direct attention, intervention and personal management. The time I documented below is in addition to time spent performing reported procedures but includes the following listed in this critical care notation. Total Critical Care Time: 35 Vital system(s) involved:: Metabolic Failure My critical care processes included: Assessment & monitoring of V/S, Initial and Re-exams, Data Review/Interpretation, Coordinating Care, Medication Orders and management, Documentation Medical Decision Making - Medical Records Medical records reviewed: Yes: I reviewed the patient's medical records. - Nathaniel Inquiry Pt receiving controlled substance: No Vital Signs: 05/02/20 18:32 05/02/20 19:00 05/02/20 19:30 Temperature 89.4 F L Temperature Source Rectal Pulse Rate [Left Radial] 46 L 49 L 42 L Respiratory Rate 16 17 15 Blood Pressure [Right Arm] 128/57 L 119/62 113/57 L Blood Pressure Mean [Right Arm] 80 81 75 Blood Pressure Source [Right Arm] Automatic Cuff Automatic Cuff Automatic Cuff Blood Pressure Position [Right Arm] Sitting Supine Supine 02 Sat by Pulse Oximetry 96 88 L 92 L Oxygen Delivery Method Room Air Room Air Room Air 05/02/20 21:07 Temperature 90.5 F L Temperature Source Rectal Pulse Rate [Left Radial] 48 L Respiratory Rate 16 Blood Pressure [Right Arm] 131/54 L Blood Pressure Mean [Right Arm] 79 Blood Pressure Source [Right Arm] Blood Pressure Position [Right Arm] 02 Sat by Pulse Oximetry 99 Oxygen Delivery Method Room Air - Lab Data Lab Results 05/02/20 18:04: WBC 6.9, RBC 3.10 L, Hgb 9.7 L, Hct 32.1 L, MCV 103.5 H, MCH 31.4 H, MCHC 30.3 L, RDW 21.4 H, Plt Count 209, MPV 9.4, Neut % (Auto) 71.5, Lymph % (Auto) 19.0, [place] % (Auto) 5.5, Eos % (Auto) 3.7, Baso % (Auto) 0.4, Neut # (Auto) 5.0, Lymph # (Auto) 1.3, [place] # (Auto) 0.4, Eos # (Auto) 0.3, Baso # (Auto) 0.0 05/02/20 18:04: PT 12.5 H, INR 1.14 H, APTT 34.5 H 05/02/20 18:04: Sodium 142, Potassium 5.0, Chloride 107, Carbon Dioxide 24, Anion Gap 16.0 H, BUN 105 H*, Creatinine 1.40 H, Estimated Creat Clear 39, Estimated GFR 48 L, Est GFR ( Amer) 58 L, Glucose 65 L, Calcium 9.9, Total Bilirubin 1.4 H, AST 80 H, ALT 36, Alkaline Phosphatase 304 H, Troponin I 0.02, Total Protein 7.9, Albumin 4.2, Globulin 3.7 H, Albumin/Globulin Ratio 1.1, TSH 13.10 H 05/02/20 18:04: Free T4 1.10 05/02/20 18:04: SARS-CoV-2 IgG Ab (Rapid) Negative, SARS-CoV-2 IgM Ab (Rapid) Negative 05/02/20 19:05: Lactate 1.0 Result diagrams: 05/02/20 18:04 05/02/20 18:04 Orders (Tests/Meds): ED MEDICATIONS Generic Name Dose Route Start Last Admin Trade Name Freq PRN Reason Stop Dose Admin Sodium Chloride 1,000 mls @ 999 mls/hr 05/02/20 19:45 05/02/20 21:10 Sod Chlor 0.9% 1000ml Bag IV 05/02/20 20:45 999 mls/hr .Q1H1M ZURI Administration Levothyroxine Sodium 50 mcg 05/03/20 07:00 Levothyroxine 50mcg (0.05mg) Tab PO 06/02/20 06:59 DAILYDM ZURI Discontinued Medications Generic Name Dose Route Start Last Admin Trade Name Freq PRN Reason Stop Dose Admin Dextrose 25 ml 05/02/20 21:48 05/02/20 21:50 Dextrose 50% 50ml Syringe (Crash Cart) IVP 05/02/20 21:49
[2020-05-02 22:19] LABS: Glucose,Random 37 mg/dL (74-100)
[2020-05-02 22:28] LABS: POC Glucose,Bedside 120 (70-110)
[2020-05-02 22:43] LABS: Occult Blood,Stool Positive (Negative)
--- NOTE | 2020-05-02 23:01 | PC.NURSE ---
patient up to floor via stretcher.
[2020-05-02 23:04] LABS: Troponin I 0.02 ng/ml (0.00-0.034)
[2020-05-02 23:33] LABS: POC Glucose,Bedside 73 (70-110)
[2020-05-03] VITALS (39 sets, daily range): BP systolic 85–133; BP diastolic 42–77; PULSE 57–81; RESP 18–22; TEMP 33.2–37.2; O2SAT 91–100; BMI 32.1
[2020-05-03 01:10] LABS: Glucose,Random 40 mg/dL (74-100)
[2020-05-03 01:13] LABS: Troponin I 0.02 ng/ml (0.00-0.034)
--- NOTE | 2020-05-03 02:22 | PC.NURSE ---
rechecked FSBS at 0100, pt continued to be confused and not alert, FSBS was 49 and 46 on other side, stat glucose ordered at this time and was 40, Dr. Lloyd contacted and gave new orders 1 amp D50 IV now D 5 1/2 NS with 20 K at 100 1 amp D 50 IV for BS less than 80 recheck BS every 2 hours
[2020-05-03 03:12] LABS: POC Glucose,Bedside 51 (70-110)
[2020-05-03 05:28] LABS: POC Glucose,Bedside 51 (70-110)
[2020-05-03 06:22] LABS: Basophils % 0.2 % (0.1-2.0); Eosinophils # 0.1 K/mm3 (0.0-0.4); Eosinophils % 2.7 % (0.1-12.0); Lymphocytes # 0.9 K/mm3 (0.7-4.5); Mean Corpuscular Hemoglobin 31.6 pg (27.0-31.2); Mean Platelet Volume 11.1 fl (7.4-10.4); Monocytes # 0.3 K/mm3 (0.1-1.0); Monocytes % 6.6 % (1.7-9.3); Neutrophils # 3.2 K/mm3 (1.8-7.8); Neutrophils % 70.6 % (37.0-80.0); Platelet Count 135 K/mm3 (142-424); Red Blood Count 2.43 M/mm3 (4.60-6.20); Red Cell Distribution Width 21.7 % (11.5-17.5); White Blood Count 4.6 K/mm3 (4.8-10.8)
[2020-05-03 06:28] LABS: Hematocrit 24.8 % (42.0-52.0)
[2020-05-03 06:34] LABS: Anion Gap 11.9 mEq/L (5-15); Carbon Dioxide 19 mmol/L (22.0-30.0); Chloride 114 mmol/L (98-107); Creatinine Clearance Estimated 44 mL/min (50-200); Estimated Glomerular Filt Rate 48 ml/min (>60); GFR (African American) 58 ML/MIN (>60); Potassium 4.9 mmoL/L (3.5-5.1); Sodium 140 mmol/L (136-145)
[2020-05-03 06:41] LABS: Blood Urea Nitrogen 94 mg/dl (9-20); Glucose 145 mg/dl (74-100)
[2020-05-03 06:42] LABS: Calcium 8.2 mg/dl (8.4-10.2)
[2020-05-03 07:11] LABS: POC Glucose,Bedside 78 (70-110)
--- NOTE | 2020-05-03 07:15 | PC.NURSE ---
Rectal temperature taken at 0715 noted to be 99.0. Gabe Paws gown/machine removed at this time.
[2020-05-03 07:32] LABS: Hemoglobin 7.7 g/dL (14.1-18.0)
--- NOTE | 2020-05-03 07:51 | HMH.HP ---
*Admission Date: 05/02/20 *Chief complaint: Mental status changes *History of present illness: 85-year-old male with diabetes and vascular disease was brought to the emergency department by family yesterday evening due to progressive decline in his mental status with decreasing cognition and level of alertness. Family is concerned was a stroke due to the patient's known history of severe carotid artery disease. At this time there is no available family and patient cannot give any history due to altered mental status. In the emergency department patient was found to be hypoglycemic, uremic, anemic. Patient also had an abnormal TSH with normal free T4. Patient's stool was also positive for blood patient was admitted for fluid resuscitation, correction of hypoglycemic state, monitoring of anemia. This morning patient's anemia has worsened with a decline from a hemoglobin of 9.7-7.7. He is remained hypoglycemic intermittently throughout the night is required multiple doses of D50. Uremia has showed early signs of improvement with IV fluid resuscitation [facility] History I have reviewed the patient's past medical history: Yes Medical History: Reports:: Carotid Stenosis, Coronary Artery Disease, Diabetes Mellitus Type 2, Hyperlipidemia, Hypertension, Peripheral Artery Disease, Transient Ischemic Attacks (TIA) Denies:: Cancer, Diabetes Mellitus Type 1, Internal Pacemaker, MRSA, Seizures *Have you ever received a pneumonia vaccine?: No *Have you received a flu vaccine this season?: No Other Medical History: Reports: Arthritis Laterality Cases: Bilateral: Other Other Surgeries: Yes: Angiogram, CABG, Cardiac Catheterization, Colonoscopy, Coronary Stent, Open Heart Surgery, Other. No: Pacemaker Amputation: No Fractures: No - *Social History Smoking Status: Never smoker Alcohol Intake: never Substance Use Type: denies use *Occupational Status:: retired Housing: house Household Members: children *Travel in the last 8 weeks: None Family Hx:: Unable to obtain Review of Systems - Review of Systems Review of systems:: unable to obtain - *Neurologic Reports abnormal speech, Denies abnormal walking, Denies headache(s), Denies loss of vision, Denies numbness Meds Home Medications Medication Instructions Recorded Confirmed Type allopurinol 100 mg tablet 100 mg PO DAILY tab 04/10/19 05/02/20 History atorvastatin 20 mg tablet 20 mg PO DAILY tab 04/10/19 05/02/20 History celecoxib 200 mg capsule 200 mg PO DAILY cap 04/10/19 05/02/20 History duloxetine 60 mg capsule,delayed 60 mg PO DAILY cap 04/10/19 05/02/20 History release furosemide 40 mg tablet 40 mg PO DAILY tab 04/10/19 05/02/20 History insulin glargine 100 unit/mL (3 1 unit SQ DAILY 04/10/19 05/02/20 History mL) subcutaneous pen liraglutide 0.6 mg/0.1 mL (18 mg/3 1 unit SQ DAILY 04/10/19 05/02/20 History mL) subcutaneous pen injector lisinopril 40 mg tablet 40 mg PO DAILY tab 01/20/20 05/02/20 History Apixaban [Eliquis 2.5mg tab] 2.5 mg PO BID 05/02/20 05/02/20 History Metoprolol Succinate [Metoprolol 50 mg PO DAILY 05/02/20 05/02/20 History Succinate 50mg Tablet*] Allergies Allergy/AdvReac Type Severity Reaction Status Date / Time No Known Allergies Allergy Verified 01/20/20 13:53 Exam Vital signs and Labs for Last 24 Hours: Temp Pulse Resp BP Pulse Ox 97.3 F L 57 L 18 116/77 100 05/03/20 06:15 05/03/20 04:00 05/03/20 04:00 05/03/20 06:00 05/03/20 04:00 Laboratory Results - last 24 hr 05/02/20 18:04: WBC 6.9, RBC 3.10 L, Hgb 9.7 L, Hct 32.1 L, MCV 103.5 H, MCH 31.4 H, MCHC 30.3 L, RDW 21.4 H, Plt Count 209, MPV 9.4, Neut % (Auto) 71.5, Lymph % (Auto) 19.0, [place] % (Auto) 5.5, Eos % (Auto) 3.7, Baso % (Auto) 0.4, Neut # (Auto) 5.0, Lymph # (Auto) 1.3, [place] # (Auto) 0.4, Eos # (Auto) 0.3, Baso # (Auto) 0.0 05/02/20 18:04: PT 12.5 H, INR 1.14 H, APTT 34.5 H 05/02/20 18:04: Sodium 142, Potassium 5.0, Chloride 107, Carbon Dioxide 24, Anion Gap
--- NOTE | 2020-05-03 08:03 | PC.NURSE ---
pt has only been oriented to person since arriving to floor, has remained in macario hugger for the shift (temperatures charted), has required 4 amps of D 50, pt was hypotensive t/o shift, with last pressure 116/77 at 0600,
[2020-05-03 08:20] LABS: POC Glucose,Bedside 128 (70-110)
--- NOTE | 2020-05-03 09:08 | CT_ITS ---
PROCEDURE: CT ABDOMEN PELVIS WO CON CLINICAL INDICATION: ABDOMINAL PAIN COMPARISON: No exams were available for comparison TECHNIQUE: Axial images obtained with sagittal and coronal reformats. All CT scans at the facility use one or more dose reduction, viz: automated exposure control, ma/kV adjustment per patient size (including targeted exams where dose is matched to indication, i.e. head), or iterative reconstruction technique. FINDINGS: Lower thorax: Infiltrate and or partial collapse of the right lower lobe. There are bilateral pleural effusions much larger right side than left. There is generalized cardiomegaly with coronary artery calcification noted. ABDOMEN: Liver: There is streak artifact crossing the liver secondary to the arms not being held out of the field of view. Otherwise the liver appears grossly normal. Gallbladder: There is a moderate size gallbladder calculus with vacuum phenomenon within it in addition to tiny gallbladder calculi as well Pancreas: No masses or peripancreatic fluid collections. Spleen: unremarkable Adrenals: unremarkable Kidneys/ureters: The kidneys are lower limits of normal in size and there are multiple small cortical cysts in each kidney. Both kidneys are somewhat hyperdense consistent with residual contrast from the previous day's CT angiogram head study. There is no obstructive uropathy of either kidney. There is stranding of the perirenal fascia and may be a tiny amount of free intraperitoneal fluid right subhepatic location ABDOMEN & PELVIS: Stomach bowel: The stomach and duodenal sweep appear grossly normal. The proximal small bowel is unremarkable. There are mildly dilated distal small bowel loops seen in the lower pelvis with mildly thickened wall and this may indicate a mild degree of enteritis. Moderate scattered stool and gas is seen throughout the colon. There may be a few diverticuli of the sigmoid colon but there is no diverticulitis. There is a large amount stool in the rectum Peritoneum: No abnormal fluid collections. No obvious inflammatory changes. No free air. Lymph nodes: No enlarged lymph nodes apparent. Vasculature: There is prominent diffuse arthrosclerotic calcification of the abdominal aorta and proximal common iliac arteries with mild ectasia of the infrarenal aorta. Bones: There multilevel degenerate changes lower thoracic and mid lumbar spine. The left sided gluteal muscles are somewhat poorly defined and show overall enlargement suggesting possibly previous trauma or residual previous myositis. There are no findings to suggest an abscess. PELVIS: Reproductive: unremarkable Bladder: There is a De Anda catheter at the base of the urinary bladder which is decompressed. There are surgical clips the lower pelvis likely from previous prostate resection. Appendix: There are no findings to suggest appendicitis. IMPRESSION: 1. Bilateral pleural effusions larger right side than left with probable right lower lobe pneumonia and or atelectasis. 2. Mild generalized cardiomegaly with coronary artery calcifications. 3. Mildly dilated fluid-filled loops of distal small bowel suggesting possible enteritis. 4. Cholelithiasis 5. Curious blurring of the detail of the left-sided gluteal muscles with slight overall expansion with possibilities as discussed above. Dictated by: Dr. Gordy Lee MD 05/04/2020 08:54 Dr. Gordy Lee MD in [place] 05/04/2020 08:54
[2020-05-03 09:16] LABS: POC Glucose,Bedside 86 (70-110)
[2020-05-03 09:19] LABS: Alanine Aminotransferase 24 U/L (12-78); Albumin Level 2.8 g/dl (3.5-5.0); Alkaline Phosphatase 205 U/L (38-126); Aspartate Amino Transferase 55 U/L (17-59); Bilirubin,Direct 0.6 mg/dl (0.0-0.4); Bilirubin,Indirect 0.4 mg/dL (0.0-0.9); Bilirubin,Unconjugated 0.4 mg/dL (0.0-1.1); Total Protein,Serum 5.8 g/dl (6.3-8.2)
--- NOTE | 2020-05-03 09:25 | HMH.GSCON ---
*Admission Date: 05/02/20 *Reason for consult:: Possible GI bleed *History of present illness: Asked to see this patient for possible GI blood loss. Unable to obtain history from patient due to mental status. The following is obtained from Dr. Lloyd' history and physical: 85-year-old male with diabetes and vascular disease was brought to the emergency department by family yesterday evening due to progressive decline in his mental status with decreasing cognition and level of alertness. Family is concerned was a stroke due to the patient's known history of severe carotid artery disease. At this time there is no available family and patient cannot give any history due to altered mental status. In the emergency department patient was found to be hypoglycemic, uremic, anemic. Patient also had an abnormal TSH with normal free T4. Patient's stool was also positive for blood patient was admitted for fluid resuscitation, correction of hypoglycemic state, monitoring of anemia.This morning patient's anemia has worsened with a decline from a hemoglobin of 9.7-7.7. He is remained hypoglycemic intermittently throughout the night is required multiple doses of D50. Review of Systems - Review of Systems Review of systems:: unable to obtain - *Neurologic Reports abnormal speech, Denies abnormal walking, Denies headache(s), Denies loss of vision, Denies numbness [facility] History I have reviewed the patient's past medical history: Yes Medical History: Reports:: Carotid Stenosis, Coronary Artery Disease, Diabetes Mellitus Type 2, Hyperlipidemia, Hypertension, Peripheral Artery Disease, Transient Ischemic Attacks (TIA) Denies:: Cancer, Diabetes Mellitus Type 1, Internal Pacemaker, MRSA, Seizures *Have you ever received a pneumonia vaccine?: No *Have you received a flu vaccine this season?: No Other Medical History: Reports: Arthritis Laterality Cases: Bilateral: Other Other Surgeries: Yes: Angiogram, CABG, Cardiac Catheterization, Colonoscopy, Coronary Stent, Open Heart Surgery, Other. No: Pacemaker Amputation: No Fractures: No - *Social History Smoking Status: Never smoker Alcohol Intake: never Substance Use Type: denies use *Occupational Status:: retired Housing: house Household Members: children *Travel in the last 8 weeks: None Family Hx:: Unable to obtain Meds Home Medications Medication Instructions Recorded Confirmed Type allopurinol 100 mg tablet 100 mg PO DAILY tab 04/10/19 05/02/20 History atorvastatin 20 mg tablet 20 mg PO DAILY tab 04/10/19 05/02/20 History celecoxib 200 mg capsule 200 mg PO DAILY cap 04/10/19 05/02/20 History duloxetine 60 mg capsule,delayed 60 mg PO DAILY cap 04/10/19 05/02/20 History release furosemide 40 mg tablet 40 mg PO DAILY tab 04/10/19 05/02/20 History insulin glargine 100 unit/mL (3 1 unit SQ DAILY 04/10/19 05/02/20 History mL) subcutaneous pen liraglutide 0.6 mg/0.1 mL (18 mg/3 1 unit SQ DAILY 04/10/19 05/02/20 History mL) subcutaneous pen injector lisinopril 40 mg tablet 40 mg PO DAILY tab 01/20/20 05/02/20 History Apixaban [Eliquis 2.5mg tab] 2.5 mg PO BID 05/02/20 05/02/20 History Metoprolol Succinate [Metoprolol 50 mg PO DAILY 05/02/20 05/02/20 History Succinate 50mg Tablet*] Allergies Allergy/AdvReac Type Severity Reaction Status Date / Time No Known Allergies Allergy Verified 01/20/20 13:53 Exam Vital signs and Labs for Last 24 Hours: Temp Pulse Resp BP Pulse Ox 98.3 F 78 20 104/47 L 96 05/03/20 08:00 05/03/20 08:00 05/03/20 08:00 05/03/20 08:00 05/03/20 08:00 Laboratory Results - last 24 hr 05/02/20 18:04: WBC 6.9, RBC 3.10 L, Hgb 9.7 L, Hct 32.1 L, MCV 103.5 H, MCH 31.4 H, MCHC 30.3 L, RDW 21.4 H, Plt Count 209, MPV 9.4, Neut % (Auto) 71.5, Lymph % (Auto) 19.0, [place] % (Auto) 5.5, Eos % (Auto) 3.7, Baso % (Auto) 0.4, Neut # (Auto) 5.0, Lymph # (Auto) 1.3, [place] # (Auto) 0.4, Eos # (Auto) 0.3, Baso # (Auto) 0.0 05/02/20 18:04: PT 12.5 H, INR 1
[2020-05-03 10:14] LABS: POC Glucose,Bedside 82 (70-110)
[2020-05-03 11:44] LABS: POC Glucose,Bedside 83 (70-110)
[2020-05-03 12:10] LABS: POC Glucose,Bedside 50 (70-110)
[2020-05-03 13:10] LABS: POC Glucose,Bedside 120 (70-110)
[2020-05-03 14:08] LABS: POC Glucose,Bedside 96 (70-110)
--- NOTE | 2020-05-03 14:54 | HMH.PHAVTE ---
[facility] VTE Monitoring - Patient Demographics Admission date: 05/03/20 Report Date: 05/03/20 Time: 14:54 Allergies/Adverse Reactions: Patient Allergies No Known Allergies Allergy (Verified 01/20/20 13:53) Height: 1.6 m Weight: 82.355 kg Patient Problems: Current Active Problems Altered mental status (Acute) Speech abnormality (Acute) Myxedema (Acute) Acute anemia (Acute) Hypoglycemia (Acute) Hypothermia (Acute) Upper GI bleed (Acute) Anemia due to blood loss, acute (Acute) Type 2 diabetes mellitus, with long-term current use of insulin (Acute) Type 2 diabetes mellitus with hypoglycemia without coma, with long-term current use of insulin (Acute) Acute uremia (Acute) Hypertensive heart disease (Acute) Chronic systolic (congestive) heart failure (Acute) Alzheimer's dementia without behavioral disturbance (Acute) Abnormal TSH (Acute) Carotid artery disease (Acute) Carotid artery disease without cerebral infarction (Acute) Peripheral arterial disease with history of revascularization (Acute) - VTE Risk Labs: VTE Related Lab Results Hgb 7.7 g/dL (14.1-18.0) L* D 05/03/20 06:00 Hct 24.8 % (42.0-52.0) L 05/03/20 06:00 Plt Count 135 K/mm3 (142-424) L D 05/03/20 06:00 PT 12.5 seconds (9.4-11.8) H 05/02/20 18:04 INR 1.14 (0.9-1.1) H 05/02/20 18:04 APTT 34.5 seconds (23.6-34.0) H 05/02/20 18:04 BUN 94 mg/dl (9-20) H 05/03/20 06:00 Creatinine 1.40 mg/dl (0.66-1.25) H 05/03/20 06:00 Estimated Creat Clear 44 mL/min (50-200) 05/03/20 06:00 Was VTE Risk Assessment Performed: Yes VTE Score: 2 VTE Risk Level: Very Low Risk - Prophylaxis Types of VTE Prophylaxis: IPCS Knee High (ICDS) Location of Applied Device: Bilateral Lower Extremeties
[2020-05-03 15:15] LABS: POC Glucose,Bedside 59 (70-110)
[2020-05-03 15:21] LABS: Microscopic, Urine URINE MICROSCOPIC (MICROSCOPIC)
[2020-05-03 15:23] LABS: Appearance,Urine CLEAR (Clear); Bilirubin,Urine Negative (Negative); Blood, Urine Negative (Negative); Color,Urine YELLOW (Yellow); Glucose,Urine (UA) Negative (Negative); Ketones,Urine Negative (Negative); Leukocyte Esterase,Urine Negative (Negative); Nitrate,Urine Negative (Negative); PH,Urine 5.5 (5.0-8.5); Protein,Urine Negative (Negative); Urobilinogen,Urine 0.2 EU/dl (0.2)
[2020-05-03 16:18] LABS: POC Glucose,Bedside 92 (70-110)
[2020-05-03 17:27] LABS: POC Glucose,Bedside 66 (70-110)
[2020-05-03 18:12] LABS: POC Glucose,Bedside 133 (70-110)
[2020-05-03 18:47] LABS: Hematocrit 29.7 % (42.0-52.0); Hemoglobin 9.4 g/dL (14.1-18.0)
[2020-05-03 19:12] LABS: POC Glucose,Bedside 118 (70-110)
--- NOTE | 2020-05-03 19:35 | PC.NURSE ---
Pt localizes to pain and occasionally moans/grimaces. No eye opening. Pt tolerated blood transfusion well. B/P slightly low. F/C is patent and draining clear, yellow urine without issue. Pt is incontinent and has had 1 large, brown, soft-formed BM this shift. Pt has been turned/repositioned and provided oral care Q2H this shift. Bed safety alarm is set. Will continue to monitor.
[2020-05-03 20:57] LABS: POC Glucose,Bedside 107 (70-110)
[2020-05-03 21:17] LABS: POC Glucose,Bedside 99 (70-110)
--- NOTE | 2020-05-03 21:38 | PC.NURSE ---
MD Rollins notified of CT results.
[2020-05-03 22:07] LABS: POC Glucose,Bedside 108 (70-110)
[2020-05-03 23:10] LABS: POC Glucose,Bedside 108 (70-110)
[2020-05-04] VITALS (7 sets, daily range): BP systolic 129–146; BP diastolic 46–63; PULSE 50–72; RESP 16–21; TEMP 35.9–36.8; O2SAT 94–98; BMI 32.3; BMI 32.4
[2020-05-04 00:09] LABS: POC Glucose,Bedside 102 (70-110)
[2020-05-04 01:11] LABS: POC Glucose,Bedside 105 (70-110)
[2020-05-04 02:09] LABS: POC Glucose,Bedside 127 (70-110)
[2020-05-04 03:10] LABS: POC Glucose,Bedside 111 (70-110)
[2020-05-04 04:09] LABS: POC Glucose,Bedside 117 (70-110)
--- NOTE | 2020-05-04 04:35 | PC.NURSE ---
Pt will open eyes when name is called. Has responded twice when asked if he is in pain. Pt has stated no and shook his head. FSBS obtained Q1HR. Have remained stable this shift ranging 99 - 127 thus far. D5 1/2 NS w/ 20 K is infusing @ 200 ml/hr to (R) wrist. Protonix infusing @ 10 ml/hr to LAC. VSS at this time. Pt is AFib on telemetry. He remains on RA. Abdomen is soft, but distended. No stools this shift. F/C draining to bedside with 250 cc dark yellow urine. No other concerns. Will continue to monitor.
[2020-05-04 05:11] LABS: POC Glucose,Bedside 123 (70-110)
[2020-05-04 06:13] LABS: POC Glucose,Bedside 147 (70-110)
[2020-05-04 06:33] LABS: Basophils % 0.3 % (0.1-2.0); Eosinophils # 0.3 K/mm3 (0.0-0.4); Eosinophils % 2.5 % (0.1-12.0); Hematocrit 33.7 % (42.0-52.0); Lymphocytes # 2.2 K/mm3 (0.7-4.5); Mean Corpuscular HGB Conc 31.2 g/dL (31.8-35.4); Mean Corpuscular Hemoglobin 31.2 pg (27.0-31.2); Mean Platelet Volume 9.4 fl (7.4-10.4); Monocytes # 0.9 K/mm3 (0.1-1.0); Monocytes % 9.1 % (1.7-9.3); Neutrophils # 6.7 K/mm3 (1.8-7.8); Neutrophils % 66.1 % (37.0-80.0); Platelet Count 174 K/mm3 (142-424); Red Blood Count 3.37 M/mm3 (4.60-6.20); White Blood Count 10.2 K/mm3 (4.8-10.8)
[2020-05-04 06:45] LABS: Alanine Aminotransferase 29 U/L (12-78); Albumin Level 3.2 g/dl (3.5-5.0); Alkaline Phosphatase 199 U/L (38-126); Anion Gap 14.4 mEq/L (5-15); Aspartate Amino Transferase 73 U/L (17-59); Bilirubin,Direct 0.6 mg/dl (0.0-0.4); Bilirubin,Indirect 0.4 mg/dL (0.0-0.9); Bilirubin,Unconjugated 0.5 mg/dL (0.0-1.1); Calcium 8.9 mg/dl (8.4-10.2); Carbon Dioxide 16 mmol/L (22.0-30.0); Chloride 114 mmol/L (98-107); Creatinine Clearance Estimated 31 mL/min (50-200); Estimated Glomerular Filt Rate 32 ml/min (>60); GFR (African American) 39 ML/MIN (>60); Glucose 119 mg/dl (74-100); Sodium 138 mmol/L (136-145); Total Protein,Serum 6.5 g/dl (6.3-8.2)
--- NOTE | 2020-05-04 06:49 | HMH.ACPN2 ---
Internal Medicine - PN: Subj *Date: 05/04/20 *Time: 06:49 Interval history: Patient's blood sugars have stabilized overnight. Mental status remains altered and below baseline. Patient will awaken to his name being called but does not answer questions appropriately. Patient was empirically started on antibiotics yesterday and urine was obtained due to suspicion of infection and possible sepsis. Urinalysis was unremarkable. Patient completed a transfusion of 2 units of packed red blood cells yesterday. Posttransfusion hemoglobin was 9.4 Exam Vital signs and Labs for Last 24 Hours: Temp Pulse Resp BP Pulse Ox 96.6 F L 67 21 129/46 L 97 05/04/20 04:00 05/04/20 04:00 05/04/20 04:00 05/04/20 04:00 05/04/20 04:00 Laboratory Results - last 24 hr 05/03/20 06:00: Hgb 7.7 L* D 05/03/20 06:00: Blood Type O Negative, Antibody Screen Negative, Crossmatch (AHG) See Detail 05/03/20 06:00: Total Bilirubin 1.0, Direct Bilirubin 0.6 H, Conjugated Bilirubin 0.0, Indirect Bilirubin 0.4, Unconjugated Bilirubin 0.4, AST 55 D, ALT 24 D, Alkaline Phosphatase 205 H, Total Protein 5.8 L D, Albumin 2.8 L D 05/03/20 07:04: POC Glucose 78 05/03/20 08:12: POC Glucose 128 H 05/03/20 09:09: POC Glucose 86 05/03/20 09:44: Blood Type Confirm O Negative 05/03/20 10:07: POC Glucose 82 05/03/20 11:09: POC Glucose 83 05/03/20 12:03: POC Glucose 50 L 05/03/20 13:03: POC Glucose 120 H 05/03/20 13:40: Urine Color Yellow, Urine Appearance Clear, Urine pH 5.5, Ur Specific [place] 1.020, Urine Protein Negative, Urine Glucose (UA) Negative, Urine Ketones Negative, Urine Blood Negative, Urine Nitrate Negative, Urine Bilirubin Negative, Urine Urobilinogen 0.2, Ur Leukocyte Esterase Negative, Urine RBC None, Urine WBC None, Ur Squamous Epith Cells None, Urine Bacteria None 05/03/20 14:02: POC Glucose 96 05/03/20 15:02: POC Glucose 59 L 05/03/20 16:08: POC Glucose 92 05/03/20 17:10: POC Glucose 66 L 05/03/20 18:05: POC Glucose 133 H 05/03/20 18:25: Hgb 9.4 L D, Hct 29.7 L 05/03/20 19:05: POC Glucose 118 H 05/03/20 20:07: POC Glucose 107 05/03/20 20:59: POC Glucose 99 05/03/20 21:59: POC Glucose 108 05/03/20 23:03: POC Glucose 108 05/04/20 00:02: POC Glucose 102 05/04/20 01:02: POC Glucose 105 05/04/20 02:02: POC Glucose 127 H 05/04/20 03:03: POC Glucose 111 H 05/04/20 04:02: POC Glucose 117 H 05/04/20 05:03: POC Glucose 123 H 05/04/20 06:05: POC Glucose 147 H I & O for Last 24 hours: Intake & Output 05/01/20 05/02/20 05/03/20 05/04/20 11:59 11:59 11:59 11:59 Intake Total 3000 / 3000 520 / 520 Output Total 450 / 450 Balance 3000 / 3000 70 / 70 Weight 181 lb 8.987 oz 182 lb 5 oz Narrative: Patient is laying in bed. He shows mild increased work of breathing with prolonged expiratory phase. Lungs however did not have any wheezes. He does have some basilar rales on the right. Heart has a regular rate and rhythm. Abdomen is obese and soft. Extremities are warm to the touch. Assessment and Plan (1) Upper GI bleed Status: Acute Category: Medical Code(s): K92.2 - Gastrointestinal hemorrhage, unspecified (2) Anemia due to blood loss, acute Status: Acute Category: Medical Code(s): D62 - Acute posthemorrhagic anemia (3) Type 2 diabetes mellitus with hypoglycemia without coma, with long-term current use of insulin Status: Acute Category: Medical Code(s): E11.649 - Type 2 diabetes mellitus with hypoglycemia without coma; Z79.4 - [facility] (current) use of insulin (4) Acute uremia Status: Acute Category: Medical Code(s): N19 - Unspecified kidney failure (5) Type 2 diabetes mellitus, with long-term current use of insulin Status: Acute Category: Medical Code(s): E11.9 - Type 2 diabetes mellitus without complications; Z79.4 - [facility] (current) use of insulin (6) Hypertensive heart disease Status: Acute Category: Medical Code(s): I11.9 - Hypertensive heart disease without heart failure (7) Chron
[2020-05-04 07:31] LABS: Potassium 6.4 mmoL/L (3.5-5.1)
[2020-05-04 07:32] LABS: Blood Urea Nitrogen 90 mg/dl (9-20)
--- NOTE | 2020-05-04 07:35 | PC.NURSE ---
reported to md patient bun and potassium results
[2020-05-04 07:49] LABS: Hemoglobin 10.5 g/dL (14.1-18.0)
[2020-05-04 08:04] LABS: Folate > 20.00 ng/mL
[2020-05-04 08:05] LABS: Vitamin B12 > 1000 pg/mL (239-931)
--- NOTE | 2020-05-04 08:24 | HMH.GSPN ---
Subjective Narrative: Patient continues with significantly altered mental status. Blood sugars have stabilized overnight. He did undergo CT scan of the abdomen and pelvis yesterday and preliminary report reveals no evidence of any acute findings. Transfusion yesterday resulted in decent response posttransfusion hemoglobin. Progress Note: A&P (1) Upper GI bleed Status: Acute (2) Anemia due to blood loss, acute Status: Acute (3) Type 2 diabetes mellitus with hypoglycemia without coma, with long-term current use of insulin Status: Acute (4) Acute uremia Status: Acute (5) Type 2 diabetes mellitus, with long-term current use of insulin Status: Acute (6) Hypertensive heart disease Status: Acute (7) Chronic systolic (congestive) heart failure Status: Acute (8) Alzheimer's dementia without behavioral disturbance Status: Acute (9) Abnormal TSH Status: Acute (10) Carotid artery disease Status: Acute (11) Carotid artery disease without cerebral infarction Status: Acute (12) Peripheral arterial disease with history of revascularization Status: Acute Assessment and Plan for All Diagnoses:: Patient likely has multifactorial etiology for clinical deterioration. At this time I do not feel that upper endoscopy would be warranted urgently for therapeutic reasons. Continue proton pump inhibitor and serial hemoglobin hematocrit checks with transfusion as needed. Exam Vital signs and Labs for Last 24 Hours: Temp Pulse Resp BP Pulse Ox 96.6 F L 67 21 129/46 L 97 05/04/20 04:00 05/04/20 04:00 05/04/20 04:00 05/04/20 04:00 05/04/20 04:00 Laboratory Results - last 24 hr 05/03/20 06:00: Blood Type O Negative, Antibody Screen Negative, Crossmatch (AHG) See Detail 05/03/20 06:00: Total Bilirubin 1.0, Direct Bilirubin 0.6 H, Conjugated Bilirubin 0.0, Indirect Bilirubin 0.4, Unconjugated Bilirubin 0.4, AST 55 D, ALT 24 D, Alkaline Phosphatase 205 H, Total Protein 5.8 L D, Albumin 2.8 L D 05/03/20 09:09: POC Glucose 86 05/03/20 09:44: Blood Type Confirm O Negative 05/03/20 10:07: POC Glucose 82 05/03/20 11:09: POC Glucose 83 05/03/20 12:03: POC Glucose 50 L 05/03/20 13:03: POC Glucose 120 H 05/03/20 13:40: Urine Color Yellow, Urine Appearance Clear, Urine pH 5.5, Ur Specific [place] 1.020, Urine Protein Negative, Urine Glucose (UA) Negative, Urine Ketones Negative, Urine Blood Negative, Urine Nitrate Negative, Urine Bilirubin Negative, Urine Urobilinogen 0.2, Ur Leukocyte Esterase Negative, Urine RBC None, Urine WBC None, Ur Squamous Epith Cells None, Urine Bacteria None 05/03/20 14:02: POC Glucose 96 05/03/20 15:02: POC Glucose 59 L 05/03/20 16:08: POC Glucose 92 05/03/20 17:10: POC Glucose 66 L 05/03/20 18:05: POC Glucose 133 H 05/03/20 18:25: Hgb 9.4 L D, Hct 29.7 L 05/03/20 19:05: POC Glucose 118 H 05/03/20 20:07: POC Glucose 107 05/03/20 20:59: POC Glucose 99 05/03/20 21:59: POC Glucose 108 05/03/20 23:03: POC Glucose 108 05/04/20 00:02: POC Glucose 102 05/04/20 01:02: POC Glucose 105 05/04/20 02:02: POC Glucose 127 H 05/04/20 03:03: POC Glucose 111 H 05/04/20 04:02: POC Glucose 117 H 05/04/20 05:03: POC Glucose 123 H 05/04/20 05:58: Sodium 138, Potassium 6.4 H* D, Chloride 114 H, Carbon Dioxide 16 L, Anion Gap 14.4, BUN 90 H, Creatinine 2.00 H D, Estimated Creat Clear 31, Estimated GFR 32 L, Est GFR ( Amer) 39 L D, Glucose 119 H, Calcium 8.9, Total Bilirubin 1.0, Direct Bilirubin 0.6 H, Conjugated Bilirubin 0.0, Indirect Bilirubin 0.4, Unconjugated Bilirubin 0.5, AST 73 H D, ALT 29, Alkaline Phosphatase 199 H, Total Protein 6.5, Albumin 3.2 L D, Vitamin B12 > 1000 H, Folate > 20.00 05/04/20 05:58: WBC 10.2 D, RBC 3.37 L D, Hgb 10.5 L D, Hct 33.7 L, MCV 100.0 H, MCH 31.2, MCHC 31.2 L, RDW 22.0 H, Plt Count 174 D, MPV 9.4, Neut % (Auto) 66.1, Lymph % (Auto) 22.0, [place] % (Auto) 9.1, Eos % (Auto) 2.5, Baso % (Auto) 0.3, Neut # (Auto) 6.7, Lymph # (Auto) 2.2, [place] # (Auto) 0.
[2020-05-04 09:21] LABS: POC Glucose,Bedside 131 (70-110)
[2020-05-04 09:21] LABS: POC Glucose,Bedside 115 (70-110)
[2020-05-04 10:16] LABS: POC Glucose,Bedside 132 (70-110)
[2020-05-04 11:09] LABS: POC Glucose,Bedside 129 (70-110)
[2020-05-04 12:42] LABS: POC Glucose,Bedside 132 (70-110)
[2020-05-04 14:08] LABS: POC Glucose,Bedside 132 (70-110)
[2020-05-04 14:08] LABS: POC Glucose,Bedside 120 (70-110)
[2020-05-04 14:54] LABS: Chloride 113 mmol/L (98-107)
[2020-05-04 14:55] LABS: Sodium 138 mmol/L (136-145)
[2020-05-04 14:58] LABS: Calcium 9.2 mg/dl (8.4-10.2); Carbon Dioxide 18 mmol/L (22.0-30.0); Creatinine Clearance Estimated 30 mL/min (50-200); Estimated Glomerular Filt Rate 30 ml/min (>60); GFR (African American) 36 ML/MIN (>60); Glucose 135 mg/dl (74-100); Potassium 6.3 mmoL/L (3.5-5.1)
[2020-05-04 14:59] LABS: Anion Gap 13.3 mEq/L (5-15); Blood Urea Nitrogen 91 mg/dl (9-20)
--- NOTE | 2020-05-04 15:06 | PC.NURSE ---
reported to md patient potassium and bun
--- NOTE | 2020-05-04 15:10 | PC.NURSE ---
stated we could start checking fsbs every 4hours now instead of hourly.
[2020-05-04 16:13] LABS: POC Glucose,Bedside 144 (70-110)
--- NOTE | 2020-05-04 17:25 | PC.NURSE ---
as the day has progressed patient has become more awake and following commands. continues to fall immediately back to sleep. will answer yes or no questions with a shake of the head and occasional one worded answer. noted small bowel movement before enema, and a medium immediately after kayexelate enema. during turn patient did yell out and curse. noted some scattered bruising to sides. continues to do jerky hand moments and reaching for things not there.at this time with assessment patient would be unsafe to swallow. vitals have been stable
[2020-05-04 20:13] LABS: POC Glucose,Bedside 178 (70-110)
[2020-05-05] VITALS (9 sets, daily range): BP systolic 103–146; BP diastolic 47–82; PULSE 53–84; RESP 18–24; TEMP 34.8–37.5; O2SAT 96–99; BMI 32.8
[2020-05-05 00:16] LABS: POC Glucose,Bedside 179 (70-110)
[2020-05-05 03:50] LABS: POC Glucose,Bedside 217 (70-110)
--- NOTE | 2020-05-05 05:32 | PC.NURSE ---
shift summary patient has remained lethargic on and off throughout shift, when awake patient nonverbal, moans or grunts. flails arms and tremors. no bowel movement noted this shift. breath sounds course throughout all [place], non productive cough. protonix drip infusing. [place] draining clear yellow urine. fsbs 172,178 and 217. temperature dropped down to 94 degrees rectal with 0400 vital signs elyse sorenson applied.
[2020-05-05 06:49] LABS: Basophils % 0.1 % (0.1-2.0); Eosinophils # 0.3 K/mm3 (0.0-0.4); Hematocrit 31.7 % (42.0-52.0); Hemoglobin 9.8 g/dL (14.1-18.0); Lymphocytes # 1.3 K/mm3 (0.7-4.5); Lymphocytes % 15.2 % (10-50); Mean Corpuscular HGB Conc 30.9 g/dL (31.8-35.4); Mean Corpuscular Hemoglobin 31.3 pg (27.0-31.2); Mean Corpuscular Volume 101.1 fl (80-94); Mean Platelet Volume 8.7 fl (7.4-10.4); Monocytes # 0.6 K/mm3 (0.1-1.0); Neutrophils # 6.6 K/mm3 (1.8-7.8); Neutrophils % 74.7 % (37.0-80.0); Platelet Count 157 K/mm3 (142-424); Red Blood Count 3.14 M/mm3 (4.60-6.20); Red Cell Distribution Width 21.7 % (11.5-17.5); White Blood Count 8.8 K/mm3 (4.8-10.8)
[2020-05-05 07:03] LABS: Anion Gap 11.6 mEq/L (5-15); Calcium 9.3 mg/dl (8.4-10.2); Carbon Dioxide 18 mmol/L (22.0-30.0); Chloride 113 mmol/L (98-107); Creatinine Clearance Estimated 33 mL/min (50-200); Estimated Glomerular Filt Rate 34 ml/min (>60); GFR (African American) 41 ML/MIN (>60); Glucose 206 mg/dl (74-100); Potassium 5.6 mmoL/L (3.5-5.1); Sodium 137 mmol/L (136-145)
[2020-05-05 07:09] LABS: Blood Urea Nitrogen 78 mg/dl (9-20)
--- NOTE | 2020-05-05 07:10 | HMH.ACPN2 ---
Internal Medicine - PN: Subj *Date: 05/05/20 *Time: 07:10 Interval history: Over the last 24 hours patient has had improvement in blood sugars. Overnight body temperature began to drop again and patient is currently on Gabe hugger. He has still not made any purposeful or meaningful responses to questions.. Hyper kalemia was detected on morning labs. Patient was given IV Lasix only to treat this with minimal response. Patient was given Kayexalate enemas overnight x2. Exam Vital signs and Labs for Last 24 Hours: Temp Pulse Resp BP Pulse Ox 94.6 F L 53 L 19 135/55 L 99 05/05/20 04:00 05/05/20 04:00 05/05/20 04:00 05/05/20 04:00 05/05/20 04:00 Laboratory Results - last 24 hr 05/04/20 05:58: Sodium 138, Potassium 6.4 H* D, Chloride 114 H, Carbon Dioxide 16 L, Anion Gap 14.4, BUN 90 H, Creatinine 2.00 H D, Estimated Creat Clear 31, Estimated GFR 32 L, Est GFR ( Amer) 39 L D, Glucose 119 H, Calcium 8.9, Total Bilirubin 1.0, Direct Bilirubin 0.6 H, Conjugated Bilirubin 0.0, Indirect Bilirubin 0.4, Unconjugated Bilirubin 0.5, AST 73 H D, ALT 29, Alkaline Phosphatase 199 H, Total Protein 6.5, Albumin 3.2 L D, Vitamin B12 > 1000 H, Folate > 20.00 05/04/20 05:58: WBC 10.2 D, RBC 3.37 L D, Hgb 10.5 L D, Hct 33.7 L, MCV 100.0 H, MCH 31.2, MCHC 31.2 L, RDW 22.0 H, Plt Count 174 D, MPV 9.4, Neut % (Auto) 66.1, Lymph % (Auto) 22.0, [place] % (Auto) 9.1, Eos % (Auto) 2.5, Baso % (Auto) 0.3, Neut # (Auto) 6.7, Lymph # (Auto) 2.2, [place] # (Auto) 0.9, Eos # (Auto) 0.3, Baso # (Auto) 0.0 05/04/20 07:57: POC Glucose 131 H 05/04/20 09:13: POC Glucose 115 H 05/04/20 10:08: POC Glucose 132 H 05/04/20 11:01: POC Glucose 129 H 05/04/20 12:24: POC Glucose 132 H 05/04/20 12:54: POC Glucose 132 H 05/04/20 14:00: POC Glucose 120 H 05/04/20 14:21: Sodium 138, Potassium 6.3 H*, Chloride 113 H, Carbon Dioxide 18 L, Anion Gap 13.3, BUN 91 H, Creatinine 2.10 H, Estimated Creat Clear 30, Estimated GFR 30 L, Est GFR ( Amer) 36 L, Glucose 135 H, Calcium 9.2 05/04/20 16:07: POC Glucose 144 H 05/04/20 19:56: POC Glucose 178 H 05/05/20 00:08: POC Glucose 179 H 05/05/20 03:32: POC Glucose 217 H 05/05/20 06:02: Sodium 137, Potassium 5.6 H, Chloride 113 H, Carbon Dioxide 18 L, Anion Gap 11.6, BUN 78 H, Creatinine 1.90 H, Estimated Creat Clear 33, Estimated GFR 34 L, Est GFR ( Amer) 41 L, Glucose 206 H D, Calcium 9.3 I & O for Last 24 hours: Intake & Output 05/02/20 05/03/20 05/04/20 05/05/20 11:59 11:59 11:59 11:59 Intake Total 3000 / 3000 520 / 520 1031 / 1031 Output Total 450 / 450 2700 / 2700 Balance 3000 / 3000 70 / 70 -1669 / -1669 Weight 181 lb 8.987 oz 182 lb 5 oz 185 lb 2 oz Microbiology Reports for the Last 24 Hours: Microbiology 05/02/20 19:05 Blood Blood Culture - Preliminary 05/02/20 19:05 Blood Blood Culture - Preliminary NO GROWTH AFTER 48 HOURS - Constitutional no acute distress - *Routine Respiratory Exam Present: CTA bilaterally Comments: Respirations are shallow. Patient has some central wheezing with forced expiration - *Routine Cardiovascular Exam Present: RRR - *Routine Abdominal Exam Present: soft, tenderness (Epigastrium) - *Routine Neurological Exam Patient opens his eyes to voice. He makes attempts to speak Assessment and Plan (1) Upper GI bleed Status: Acute Category: Medical Code(s): K92.2 - Gastrointestinal hemorrhage, unspecified (2) Anemia due to blood loss, acute Status: Acute Category: Medical Code(s): D62 - Acute posthemorrhagic anemia (3) Type 2 diabetes mellitus with hypoglycemia without coma, with long-term current use of insulin Status: Acute Category: Medical Code(s): E11.649 - Type 2 diabetes mellitus with hypoglycemia without coma; Z79.4 - [facility] (current) use of insulin (4) Acute uremia Status: Acute Category: Medical Code(s): N19 - Unspecified kidney failure (5) Type 2 diabetes mellitus, w
--- NOTE | 2020-05-05 07:10 | PC.NURSE ---
critical lab called, dr. montenegro on floor reviewing labs and assessing patient.
--- NOTE | 2020-05-05 07:15 | CT_ITS ---
PROCEDURE: CT HEAD/BRAIN WO CON CLINICAL INDICATION: Aphasia, hypothermia COMPARISON: CT CT ANGIO HEAD from 05/02/2020 TECHNIQUE: Axial images obtained. All CT scans at the facility use one or more dose reduction, viz: automated exposure control, ma/kV adjustment per patient size (including targeted exams where dose is matched to indication, i.e. head), or iterative reconstruction technique. FINDINGS: No midline shift, mass effect, intracranial hemorrhage, hydrocephalus, or extra-axial fluid collection is evident. There is generalized atrophy with hypoattenuation of the periventricular white matter consistent with microangiopathic changes. The calvarium has an unremarkable appearance. No mastoid effusion. No sinus air-fluid level. IMPRESSION: No acute intracranial finding Dictated by: Dmitry Oliveira MD 05/05/2020 16:39 Dmitry Oliveira MD in [place] 05/05/2020 16:39
[2020-05-05 08:43] LABS: POC Glucose,Bedside 194 (70-110)
[2020-05-05 10:25] LABS: POC Glucose,Bedside 49 (70-110)
[2020-05-05 10:25] LABS: POC Glucose,Bedside 43 (70-110)
[2020-05-05 10:25] LABS: POC Glucose,Bedside 46 (70-110)
--- NOTE | 2020-05-05 11:23 | PC.NURSE ---
Called and talked with radiology to make sure they were aware of ct of head.
[2020-05-05 14:25] LABS: POC Glucose,Bedside 124 (70-110)
[2020-05-05 15:16] LABS: Hematocrit 34.1 % (42.0-52.0); Hemoglobin 10.4 g/dL (14.1-18.0)
[2020-05-05 15:20] LABS: Potassium 5.9 mmoL/L (3.5-5.1)
[2020-05-05 17:12] LABS: POC Glucose,Bedside 110 (70-110)
--- NOTE | 2020-05-05 21:13 | PC.NURSE ---
No acute changes this shift. Meds given per jun. Dr. Lloyd did speak and update family in RE to plan of care. No acute findings on head ct. Pt continues to be non verbal. FS changes to [facility].
[2020-05-06] VITALS (7 sets, daily range): BP systolic 139–173; BP diastolic 58–90; PULSE 80–98; RESP 19–25; TEMP 36.4–37.1; O2SAT 94–99; BMI 32.8
[2020-05-06 01:18] LABS: POC Glucose,Bedside 135 (70-110)
[2020-05-06 06:29] LABS: POC Glucose,Bedside 165 (70-110)
[2020-05-06 06:30] LABS: Basophils % 0.3 % (0.1-2.0); Eosinophils # 0.3 K/mm3 (0.0-0.4); Hematocrit 33.9 % (42.0-52.0); Hemoglobin 9.9 g/dL (14.1-18.0); Lymphocytes # 1.4 K/mm3 (0.7-4.5); Lymphocytes % 14.6 % (10-50); Mean Corpuscular HGB Conc 29.3 g/dL (31.8-35.4); Mean Corpuscular Hemoglobin 30.4 pg (27.0-31.2); Mean Corpuscular Volume 103.7 fl (80-94); Monocytes # 0.7 K/mm3 (0.1-1.0); Monocytes % 7.3 % (1.7-9.3); Neutrophils # 7.1 K/mm3 (1.8-7.8); Neutrophils % 74.9 % (37.0-80.0); Platelet Count 184 K/mm3 (142-424); Red Blood Count 3.27 M/mm3 (4.60-6.20); Red Cell Distribution Width 21.5 % (11.5-17.5); White Blood Count 9.5 K/mm3 (4.8-10.8)
[2020-05-06 06:50] LABS: Anion Gap 12.7 mEq/L (5-15); Blood Urea Nitrogen 70 mg/dl (9-20); Calcium 9.8 mg/dl (8.4-10.2); Carbon Dioxide 19 mmol/L (22.0-30.0); Chloride 113 mmol/L (98-107); Creatinine Clearance Estimated 31 mL/min (50-200); Estimated Glomerular Filt Rate 32 ml/min (>60); GFR (African American) 39 ML/MIN (>60); Glucose 162 mg/dl (74-100); Potassium 5.7 mmoL/L (3.5-5.1); Sodium 139 mmol/L (136-145)
[2020-05-06 06:52] LABS: C-Reactive Protein 31.3 mg/L (0-4)
[2020-05-06 07:05] LABS: Procalcitonin 0.882 ng/mL (0.0-2.0)
--- NOTE | 2020-05-06 07:43 | HMH.ACPN2 ---
Internal Medicine - PN: Wiliam *Date: 05/06/20 *Time: 07:43 Interval history: Patient's condition remains stable although mental status still remains depressed. Glucose has remained between 90 and 130s overnight and patient currently is on D10W at 40 mL/h. Repeat CT scan performed yesterday did not show any evidence of infarct. Exam Vital signs and Labs for Last 24 Hours: Temp Pulse Resp BP Pulse Ox 98.2 F 84 25 H 161/58 H 98 05/06/20 04:00 05/06/20 04:00 05/06/20 04:00 05/06/20 04:00 05/06/20 04:00 Laboratory Results - last 24 hr 05/02/20 19:05: Cortisol 10.5 05/02/20 21:46: POC Glucose 43 L* 05/03/20 00:55: POC Glucose 49 L* 05/03/20 00:56: POC Glucose 46 L* 05/05/20 08:33: POC Glucose 194 H 05/05/20 14:17: POC Glucose 124 H 05/05/20 15:05: Potassium 5.9 H 05/05/20 15:05: Hgb 10.4 L, Hct 34.1 L 05/05/20 16:58: POC Glucose 110 05/05/20 20:35: POC Glucose 135 H 05/06/20 05:49: POC Glucose 165 H 05/06/20 05:53: C-Reactive Protein 31.3 H, Procalcitonin 0.882 05/06/20 05:53: WBC 9.5, RBC 3.27 L, Hgb 9.9 L, Hct 33.9 L, MCV 103.7 H, MCH 30.4, MCHC 29.3 L, RDW 21.5 H, Plt Count 184, MPV 9.0, Neut % (Auto) 74.9, Lymph % (Auto) 14.6, [place] % (Auto) 7.3, Eos % (Auto) 3.0, Baso % (Auto) 0.3, Neut # (Auto) 7.1, Lymph # (Auto) 1.4, [place] # (Auto) 0.7, Eos # (Auto) 0.3, Baso # (Auto) 0.0 05/06/20 05:53: Sodium 139, Potassium 5.7 H, Chloride 113 H, Carbon Dioxide 19 L, Anion Gap 12.7, BUN 70 H, Creatinine 2.00 H, Estimated Creat Clear 31, Estimated GFR 32 L, Est GFR ( Amer) 39 L, Glucose 162 H D, Calcium 9.8, TSH 11.40 H I & O for Last 24 hours: Intake & Output 05/03/20 05/04/20 05/05/20 05/06/20 11:59 11:59 11:59 11:59 Intake Total 3000 / 3000 520 / 520 1031 / 1031 450 / 450 Output Total 450 / 450 2700 / 2700 Balance 3000 / 3000 70 / 70 -1669 / -1669 450 / 450 Weight 181 lb 8.987 oz 182 lb 5 oz 185 lb 2 oz 185 lb 1.99 oz Microbiology Reports for the Last 24 Hours: Microbiology 05/02/20 19:05 Blood Blood Culture - Preliminary Gram Positive Cocci Narrative: Patient opens his eyes when his name is called. His gaze is unfocused. Patient can follow some commands such as squeeze my hand and wiggle your toes. Patient has what appears to be decreased movement of the left foot and ankle although his mental status causes into question. Nursing staff points out bruising of the base of the penis and scrotum. Lungs are clear although patient has forced expiration that is causing wheezing type sounds. Heart has a regular rate and rhythm Assessment and Plan (1) Upper GI bleed Status: Resolved Category: Medical Code(s): K92.2 - Gastrointestinal hemorrhage, unspecified (2) Anemia due to blood loss, acute Status: Resolved Category: Medical Code(s): D62 - Acute posthemorrhagic anemia (3) Type 2 diabetes mellitus with hypoglycemia without coma, with long-term current use of insulin Status: Acute Category: Medical Code(s): E11.649 - Type 2 diabetes mellitus with hypoglycemia without coma; Z79.4 - terminal system operator (current) use of insulin (4) Acute uremia Status: Acute Category: Medical Code(s): N19 - Unspecified kidney failure (5) Type 2 diabetes mellitus, with long-term current use of insulin Status: Acute Category: Medical Code(s): E11.9 - Type 2 diabetes mellitus without complications; Z79.4 - terminal system operator (current) use of insulin (6) Hypertensive heart disease Status: Acute Category: Medical Code(s): I11.9 - Hypertensive heart disease without heart failure (7) Chronic systolic (congestive) heart failure Status: Acute Category: Medical Code(s): I50.22 - Chronic systolic (congestive) heart failure (8) Alzheimer's dementia without behavioral disturbance Status: Acute Category: Medical Code(s): G30.9 - Alzheimer's disease, unspecified; F02.80 - Dementia in other diseases classified elsewhere without behavioral disturbance (9) Abnorm
--- NOTE | 2020-05-06 07:59 | PC.NURSE ---
Pt remains nonverbal. Will open eyes when he hears his voice. Pt has been more guarded this shift and at times will hit at staff. During assessment, pt was noted to have bruising to scrotum and penis. notified during AM rounds.Pt remains NPO. VSS. Medication administered per mar. Will continue to monitor.
--- NOTE | 2020-05-06 12:19 | HMH.ACPN ---
Internal Medicine - PN: Subj *Date: 05/06/20 *Time: 12:19 Exam Vital signs and Labs for Last 24 Hours: Temp Pulse Resp BP Pulse Ox 98.7 F 83 20 167/80 H 97 05/06/20 08:00 05/06/20 08:00 05/06/20 08:00 05/06/20 08:00 05/06/20 08:00 Laboratory Results - last 24 hr 05/05/20 14:17: POC Glucose 124 H 05/05/20 15:05: Potassium 5.9 H 05/05/20 15:05: Hgb 10.4 L, Hct 34.1 L 05/05/20 16:58: POC Glucose 110 05/05/20 20:35: POC Glucose 135 H 05/06/20 05:49: POC Glucose 165 H 05/06/20 05:53: C-Reactive Protein 31.3 H, Procalcitonin 0.882 05/06/20 05:53: WBC 9.5, RBC 3.27 L, Hgb 9.9 L, Hct 33.9 L, MCV 103.7 H, MCH 30.4, MCHC 29.3 L, RDW 21.5 H, Plt Count 184, MPV 9.0, Neut % (Auto) 74.9, Lymph % (Auto) 14.6, [place] % (Auto) 7.3, Eos % (Auto) 3.0, Baso % (Auto) 0.3, Neut # (Auto) 7.1, Lymph # (Auto) 1.4, [place] # (Auto) 0.7, Eos # (Auto) 0.3, Baso # (Auto) 0.0 05/06/20 05:53: Sodium 139, Potassium 5.7 H, Chloride 113 H, Carbon Dioxide 19 L, Anion Gap 12.7, BUN 70 H, Creatinine 2.00 H, Estimated Creat Clear 31, Estimated GFR 32 L, Est GFR ( Amer) 39 L, Glucose 162 H D, Calcium 9.8, TSH 11.40 H I & O for Last 24 hours: Intake & Output 05/03/20 05/04/20 05/05/20 05/06/20 23:59 23:59 23:59 23:59 Intake Total 520 / 520 1031 / 1031 450 / 450 0 / 0 Output Total 200 / 200 1850 / 1850 1100 / 1100 Balance 320 / 320 -819 / -819 -650 / -650 0 / 0 Weight 82.355 kg 83 kg 83.971 kg 83.971 kg Microbiology Reports for the Last 24 Hours: Microbiology 05/02/20 19:05 Blood Blood Culture - Preliminary Gram Positive Cocci Assessment and Plan (1) Upper GI bleed Status: Resolved Category: Medical Code(s): K92.2 - Gastrointestinal hemorrhage, unspecified (2) Anemia due to blood loss, acute Status: Resolved Category: Medical Code(s): D62 - Acute posthemorrhagic anemia (3) Type 2 diabetes mellitus with hypoglycemia without coma, with long-term current use of insulin Status: Acute Category: Medical Code(s): E11.649 - Type 2 diabetes mellitus with hypoglycemia without coma; Z79.4 - termite exterminator helper (current) use of insulin (4) Acute uremia Status: Acute Category: Medical Code(s): N19 - Unspecified kidney failure (5) Type 2 diabetes mellitus, with long-term current use of insulin Status: Acute Category: Medical Code(s): E11.9 - Type 2 diabetes mellitus without complications; Z79.4 - skilled nursing (current) use of insulin (6) Hypertensive heart disease Status: Acute Category: Medical Code(s): I11.9 - Hypertensive heart disease without heart failure (7) Chronic systolic (congestive) heart failure Status: Acute Category: Medical Code(s): I50.22 - Chronic systolic (congestive) heart failure (8) Alzheimer's dementia without behavioral disturbance Status: Acute Category: Medical Code(s): G30.9 - Alzheimer's disease, unspecified; F02.80 - Dementia in other diseases classified elsewhere without behavioral disturbance (9) Abnormal TSH Status: Acute Category: Medical Code(s): R79.89 - Other specified abnormal findings of blood chemistry (10) Carotid artery disease Status: Acute Category: Medical Code(s): I77.9 - Disorder of arteries and arterioles, unspecified (11) Carotid artery disease without cerebral infarction Status: Acute Category: Medical Code(s): I77.9 - Disorder of arteries and arterioles, unspecified (12) Peripheral arterial disease with history of revascularization Status: Acute Category: Medical Code(s): I73.9 - Peripheral vascular disease, unspecified; Z98.890 - Other specified postprocedural states (13) Hyperkalemia Status: Acute Category: Medical Code(s): E87.5 - Hyperkalemia The patient's infection will respond to the chosen ABx?: Yes Is the patient receiving the right drug, dose, and route?: Yes Could a more targeted ABx be ordered?: No (AWAITING BLOOD CULTRES)
--- NOTE | 2020-05-06 13:14 | PC.NURSE ---
per Dr Lloyd and pt daughter request, oral care was attempted with patient again. pt becomes very combative with staff, grasping and twisting staff arm and gritting teeth. pt lips were able to be cleaned and teeth partially brushed. pt appears irritated with staff in regards to oral care. will attempt again as needed. Lucio Cordoba and Oli Armijo provided oral care.
--- NOTE | 2020-05-06 14:12 | DIET.NUTRFU ---
Pt on day 4 NPO status rt possible GI bleed and continued AMS. He is receiving D10 IVF. BG have normalized- avg. past 68cg=176. 3# weight gain t/o stay. Renal function stable. If pt continues without improvement in ability to tolerate PO intake over next 48hrs nutritional support may be indicated. Possible end of life care discussion with family noted. Will continue to monitor pt and further care plans.
[2020-05-06 16:09] LABS: POC Glucose,Bedside 169 (70-110)
[2020-05-06 17:32] LABS: ABG Base Excess -7.3 mmol/L (-2.4-2.3); ABG HCO3 19.4 mmhg (22.0-26.0); ABG Oxygen Saturation 91 % (90-100); ABG PCO2 41.5 mmhg (35.0-45.0); ABG PH 7.29 mmol/L (7.35-7.45); ABG PO2 59.9 mmhg (80-100); ABG TCO2 20.6 mmhg (23-27)
[2020-05-06 17:34] LABS: Allen's Test Patient Unable; Oxygen 3 %; Source Left Radial
[2020-05-06 17:36] LABS: POC Glucose,Bedside 153 (70-110)
[2020-05-06 20:52] LABS: POC Glucose,Bedside 130 (70-110)
[2020-05-07] VITALS: BP 132/80; PULSE 100; PULSE 97; RESP 22; TEMP 36.6; O2SAT 90
--- NOTE | 2020-05-07 00:59 | ECG_ITS ---
APPROVED REPORT Exam: Resting ECG HR:107 bpm ECG Measurements Heart Rate 107 AXES OH 240 P QRSd 118 QRS -61 QT 318 T 115 QTc 424 Conclusion Sinus tachycardia with 1st degree AV block Left axis deviation Possible Anterior infarct, age undetermined ST & T wave abnormality, consider lateral ischemia Abnormal ECG Electronically signed by : Vern Aviles, 05/07/2020 19:27:29
--- NOTE | 2020-05-07 01:29 | PC.NURSE ---
Addendum entered by Mela Wakefield RN 05/07/20 01:48: Note: allocations clerk has NNO at this time Original Note: 0035- Noted cardiac rhythm change on monitor; pt. resting at this time. Of note, rhythm has ST Elevation. 0039- Contacted RT to bring EKG machine 0040- Walt BP: 132/80, HR: 97, o2 sat 97% on 2l nc, RR: 22; pt. aggressive and combative while obtaining vital signs. 0059- Obtained EKG; pt. aggressive and combative during this time as well, x3 assist. 0100- EKG read and signed by MD Vnekatesh with no new orders 0110- Paged allocations clerk r/t stat EKG being obtained Pt. resting in bed calm at this time.
[2020-05-07 04:00] VITALS: BP 139/66; PULSE 100; PULSE 96; RESP 19; TEMP 36.8; TEMP 37.8; O2SAT 97
[2020-05-07 05:00] VITALS: BMI 31.1
[2020-05-07 06:25] LABS: POC Glucose,Bedside 145 (70-110)
--- NOTE | 2020-05-07 06:37 | PC.NURSE ---
0400- Rectal temp: 100.0 0453- Contacted MD Traci regarding temp; New orders: Tylenol 650 mg RC Q6h prn Attempted oral care t/o shift; pt. aggressive and combative during this.
[2020-05-07 06:51] LABS: Basophils % 0.1 % (0.1-2.0); Eosinophils # 0.3 K/mm3 (0.0-0.4); Eosinophils % 3.2 % (0.1-12.0); Hematocrit 31.6 % (42.0-52.0); Hemoglobin 9.7 g/dL (14.1-18.0); Lymphocytes # 1.2 K/mm3 (0.7-4.5); Lymphocytes % 13.9 % (10-50); Mean Corpuscular HGB Conc 30.6 g/dL (31.8-35.4); Mean Corpuscular Volume 101.4 fl (80-94); Mean Platelet Volume 8.9 fl (7.4-10.4); Monocytes # 0.7 K/mm3 (0.1-1.0); Monocytes % 8.4 % (1.7-9.3); Neutrophils # 6.3 K/mm3 (1.8-7.8); Neutrophils % 74.3 % (37.0-80.0); Platelet Count 163 K/mm3 (142-424); Red Blood Count 3.12 M/mm3 (4.60-6.20); Red Cell Distribution Width 21.1 % (11.5-17.5); White Blood Count 8.5 K/mm3 (4.8-10.8)
[2020-05-07 07:02] LABS: Anion Gap 12.9 mEq/L (5-15); Blood Urea Nitrogen 59 mg/dl (9-20); Carbon Dioxide 20 mmol/L (22.0-30.0); Chloride 114 mmol/L (98-107); Creatinine Clearance Estimated 30 mL/min (50-200); Estimated Glomerular Filt Rate 32 ml/min (>60); GFR (African American) 39 ML/MIN (>60); Glucose 141 mg/dl (74-100); Potassium 5.9 mmoL/L (3.5-5.1); Sodium 141 mmol/L (136-145)
[2020-05-07 07:20] LABS: Troponin I 1.19 ng/ml (0.00-0.034)
--- NOTE | 2020-05-07 07:44 | HMH.ACPN2 ---
Internal Medicine - PN: Subj *Date: 05/07/20 *Time: 07:44 Interval history: Patient's level of consciousness and alertness remains unchanged. Overnight nursing staff detected an increase in patient's tachycardia as well as what appeared to be ST elevations on his monitor. EKG was performed which did show some ST elevations in V3 and V4. Patient's heart rate returned to the high 100s. He did not seem uncomfortable during this time. Nursing staff reports patient has been witnessed moving all extremities. He has not made any meaningful movements. Exam Vital signs and Labs for Last 24 Hours: Temp Pulse Resp BP Pulse Ox 100.0 F H 96 H 19 139/66 97 05/07/20 04:00 05/07/20 04:00 05/07/20 04:00 05/07/20 04:00 05/07/20 04:00 Laboratory Results - last 24 hr 05/06/20 15:58: POC Glucose 169 H 05/06/20 17:08: Specimen Source Left radial, O2 % 3, ABG pH 7.29 L, ABG pCO2 41.5, ABG pO2 59.9 L, ABG HCO3 19.4 L, ABG Total CO2 20.6 L, ABG O2 Saturation 91, ABG Base Excess -7.3 L, Dmitry Test Patient unable 05/06/20 17:29: POC Glucose 153 H 05/06/20 20:41: POC Glucose 130 H 05/07/20 06:17: POC Glucose 145 H 05/07/20 06:20: WBC 8.5, RBC 3.12 L, Hgb 9.7 L, Hct 31.6 L, MCV 101.4 H, MCH 31.0, MCHC 30.6 L, RDW 21.1 H, Plt Count 163, MPV 8.9, Neut % (Auto) 74.3, Lymph % (Auto) 13.9, [place] % (Auto) 8.4, Eos % (Auto) 3.2, Baso % (Auto) 0.1, Neut # (Auto) 6.3, Lymph # (Auto) 1.2, [place] # (Auto) 0.7, Eos # (Auto) 0.3, Baso # (Auto) 0.0 05/07/20 06:20: Sodium 141, Potassium 5.9 H, Chloride 114 H, Carbon Dioxide 20 L, Anion Gap 12.9, BUN 59 H, Creatinine 2.00 H, Estimated Creat Clear 30, Estimated GFR 32 L, Est GFR ( Amer) 39 L, Glucose 141 H, Calcium 10.0 05/07/20 06:20: Troponin I 1.19 H I & O for Last 24 hours: Intake & Output 05/04/20 05/05/20 05/06/20 05/07/20 11:59 11:59 11:59 11:59 Intake Total 520 / 520 1031 / 1031 450 / 450 2495 / 2495 Output Total 450 / 450 2700 / 2700 1700 / 1700 Balance 70 / 70 -1669 / -1669 450 / 450 795 / 795 Weight 182 lb 5 oz 185 lb 2 oz 185 lb 1.99 oz 175 lb 9 oz Narrative: Patient is laying in bed. He makes no purposeful movement. Patient can grasp my fingers or hand and seems to follow the command of squeeze my hand but at the same time he may simply be responding to the tactile stimulus. Patient will open his eyes when his name is called but has no purposeful gaze and does not make eye contact. Oropharynx is dry. Neck is without lymphadenopathy. Lungs are clear anteriorly but at the posterior bases breath sounds are distant. Abdomen is soft without epigastric tenderness. Extremities have no edema. Troponin is elevated at greater than 1 indicative of DC overnight Assessment and Plan (1) Upper GI bleed Status: Resolved Category: Medical Code(s): K92.2 - Gastrointestinal hemorrhage, unspecified (2) Anemia due to blood loss, acute Status: Resolved Category: Medical Code(s): D62 - Acute posthemorrhagic anemia (3) Type 2 diabetes mellitus with hypoglycemia without coma, with long-term current use of insulin Status: Acute Category: Medical Code(s): E11.649 - Type 2 diabetes mellitus with hypoglycemia without coma; Z79.4 - termite control representative (current) use of insulin (4) Acute uremia Status: Acute Category: Medical Code(s): N19 - Unspecified kidney failure (5) Type 2 diabetes mellitus, with long-term current use of insulin Status: Acute Category: Medical Code(s): E11.9 - Type 2 diabetes mellitus without complications; Z79.4 - skilled nursing (current) use of insulin (6) Hypertensive heart disease Status: Acute Category: Medical Code(s): I11.9 - Hypertensive heart disease without heart failure (7) Chronic systolic (congestive) heart failure Status: Acute Category: Medical Code(s): I50.22 - Chronic systolic (congestive) heart failure (8) Alzheimer's dementia without behavioral disturbance Status: Acute Category: Medical Code(s): G30.9 - Alzheimer's diseas
--- NOTE | 2020-05-07 07:55 | HMH.DCSUM ---
General - General Admission date:: 05/02/20 Discharge date: 05/07/20 HPI HPI: 85-year-old male with diabetes and vascular disease was brought to the emergency department by family yesterday evening due to progressive decline in his mental status with decreasing cognition and level of alertness. Family is concerned was a stroke due to the patient's known history of severe carotid artery disease. At this time there is no available family and patient cannot give any history due to altered mental status. In the emergency department patient was found to be hypoglycemic, uremic, anemic. Patient also had an abnormal TSH with normal free T4. Patient's stool was also positive for blood patient was admitted for fluid resuscitation, correction of hypoglycemic state, monitoring of anemia. This morning patient's anemia has worsened with a decline from a hemoglobin of 9.7-7.7. He is remained hypoglycemic intermittently throughout the night is required multiple doses of D50. Uremia has showed early signs of improvement with IV fluid resuscitation Hospital Course Hospital Course: Patient was admitted with coma and hypoglycemia. Patient was started on D5 half-normal saline with potassium at 200 mL an hour to maintain blood sugars at an appropriate level (above 80) even with aggressive fluid resuscitation patient still required frequent administration of D50 on the first day of admission along with administration of glucagon. After approximately 36 hours of hospitalization patient's blood sugar stabilized and due to hyperkalemia patient was transitioned to D10 water which she remained on for the duration of his admission until discharge. Patient did not receive any insulin during hospitalization. Patient's coma never improved and he was never able to take any oral intake. At one point with the family NG tube was discussed but due to patient's wishes for DO NOT RESUSCITATE at the end of life this was delayed as it did seem patient was at the end of life. Patient had a decrease in hemoglobin from baseline recognized on admission. On the morning of May 03 patient seemed to have epigastric tenderness. Stool was positive for blood. Patient had a further drop in hemoglobin to less than 8 and concern was raised about it upper GI bleed. Patient was started on a Protonix drip. Patient was transfused 2 units of packed red blood cells. Dr. Rollins was consulted for possible future EGD. The 2 units of blood stabilized patient's anemia and during the remainder of hospitalization hemoglobin remained between 9 and 10. Due to the patient's unchanged level of consciousness EGD was postponed and as the patient is at end-of-life at discharge will not be completed. On presentation to the emergency department despite the patient's hypoglycemia he was apparently conversant. This is also confirmed upon his arrival to the [facility] floor. However overnight the first evening of admission patient mental status declined and never recovered. Patient's level of consciousness allowed him to sometimes open his eyes when name was called but never having a purposeful gaze. Patient intermittently would be able to follow commands but not consistently. Neurologically there was no asymmetry of movement and sensation seemed intact. Cranial nerves that could be tested were also intact. Patient's level of consciousness and mental status did not change during hospitalization despite stabilization of his blood sugars. Patient was identified as having an elevated TSH on admission but normal free T4 so hypothyroidism was not considered a significant factor in his level of consciousness. Patient has known carotid disease and has been deemed high risk for intervention. CT scan and CTA performed on admission did not show any acute infarct or bleed. Follow-up CT scan performed over 48 hours after hospitalization was unchanged. Patient has a history of vascular disease. Overnight on May 06 t
[2020-05-07 08:00] VITALS: BP 106/40; PULSE 93; RESP 22; TEMP 36.5; O2SAT 97
[2020-05-07 08:21] LABS: POC Glucose,Bedside 130 (70-110)
--- NOTE | 2020-05-07 08:35 | SW/DCPLANNER ---
SENT REFERRAL TO HOSPICE THIS MORNING PER DR GOEL STATING FAMILY WISHES TO TAKE PATIENT HOME... I HAVE FAXED PATIENT INFORMATION TO HOSPICE AND CALLED TO LET THEM KNOW THE DAUGHTER WOULD BE HERE THIS MORNING TO SPEAK WITH HOSPICE.. THE PLAN IS ONCE A BED AND 02 IS ORDERED PATIENT WILL DISCHARGE TO HOME...[facility].
[2020-05-07 11:40] LABS: POC Glucose,Bedside 105 (70-110)
--- NOTE | 2020-05-07 16:01 | PC.NURSE ---
PT WILL BE DISCHARGED HOME WITH HOSPICE. PT HAS BEEN COMBATIVE T/O THE SHIFT WITH ANY KIND OF CARE. PT PUNCHES/KICKS/ATTEMPTS TO BITE DURING FINGERSTICKS AND WHILE TRYING TO ASSESS. NPO. ORAL CARE FREQUENTLY. PT RECEIVED ONE DOSE OF ATIVAN THIS SHIFT. LUNG SOUNDS CLEAR. SCATTERED BRUISING NOTED. ABDOMEN SOFT/NON TENDER WITH HYPOACTIVE BOWEL SOUNDS. DAUGHTER NOTIFIED TO GET AMBULANCE DNR BUT DAUGHTER STATED IF PT WAS TO CODE IN THE AMBULANCE SHE WOULD WANT PT TO BE RESUSITATED B/C PT'S REQUEST WAS TO AT HOME. AMBULANCE ARRIVED AT 1545 TO TRANSPORT PT HOME.
== END 2020-05-07 15:45 | disposition hospice, home (50) | DRG 377 ==
LOC: ER 19:42 → 2ND 22:00
PROVIDERS: Family Medicine; Admitting Provider Family Medicine; Emergency Provider Emergency Medicine; PCP Family Medicine; Visit Provider Family Medicine
DX: K92.2 Gastrointestinal hemorrhage, unspecified (principal); E11.641 Type 2 diabetes mellitus with hypoglycemia with coma; I21.4 Non-ST elevation (NSTEMI) myocardial infarction; D62 Acute posthemorrhagic anemia; I50.22 Chronic systolic (congestive) heart failure; I11.0 Hypertensive heart disease with heart failure; Z95.5 Presence of coronary angioplasty implant and graft; Z95.820 Peripheral vascular angioplasty status with implants and grafts; I70.209 Unspecified atherosclerosis of native arteries of extremities, unspecified extremity; E78.5 Hyperlipidemia, unspecified; G30.9 Alzheimer's disease, unspecified; F02.80 Dementia in other diseases classified elsewhere, unspecified severity, without behavioral disturbance, psychotic disturbance, mood disturbance, and anxiety; Z95.1 Presence of aortocoronary bypass graft; Z79.4 Long term (current) use of insulin; Z79.899 Other long term (current) drug therapy
CPT/HCPCS: 36415; 70450; 70496; 70498; 71045; 72170; 74176; 80048; 80053; 80076; 81001; 82272; 82533; 82607; 82746; 82803; 82947; 82962; 83605; 84132; 84145; 84439; 84443; 84484; 85014; 85018; 85025; 85610; 85730; 86140; 86328; 86850; 87040; 87077; 93005; 94760; 96366; 96375; 99284; G0328; J1610; P9016; Q9967